=== PATIENT | female | born 1990 | race Caucasian/White ===

== ENCOUNTER → 2019-04-09 10:21 | Outpatient (CLI) | payer OTHER, MEDICAID, SELFPAY ==
[2019-04-09 10:52] LABS: Hematocrit 38.5 % (36-46); Hemoglobin 12.9 g/dL (12.0-16.0); Mean Corpuscular HGB Conc 33.5 % (30-36); Mean Corpuscular Hemoglobin 30.7 PG (26-34); Mean Corpuscular Volume 91.6 fL (80-100); Platelet Count 221 X10^3/uL (150-400); Red Cell Distribution Width 13.4 % (11.6-14.8); White Blood Cell Count 5.2 X10^3/uL (4.5-11.0)
[2019-04-09 11:31] LABS: Alanine Aminotransferase 17 IU/L (9-52); Albumin 4.3 g/dL (3.5-5.0); Albumin Globulin Ratio 1.6 (1.0-2.8); Alkaline Phosphatase 45 U/L (38-126); Aspartate Aminotransferase 23 IU/L (14-36); BUN Creatinine Ratio 18.8 (6-22); Bilirubin Total 0.4 mg/dL (0.2-1.3); Blood Urea Nitrogen 15 mg/dL (7-17); Calcium 8.8 mg/dL (8.4-10.2); Carbon Dioxide 25 mmol/L (22-32); Chloride 105 mmol/L (98-107); Cholesterol 162 mg/dL (140-199); Estimated Glomerular Filt Rate > 60.0 mL/min (>60); Globulin 2.7 g/dL (1.7-4.1); Glucose 87 mg/dL (70-100); HDL Cholesterol 84 mg/dL (40-60); HEMOLYSIS < 15 (0-50); LDL Cholesterol Calculated 63 mg/dL (<100); Potassium 4.6 mmol/L (3.4-5.1); Sodium 139 mmol/L (137-145); Triglycerides 77 mg/dL (35-150)
[2019-04-09 12:13] LABS: TSH w/ Reflex to FT4 4.81 uIU/mL (0.47-4.68)
[2019-04-09 12:17] LABS: Vitamin B12 546 pg/mL (239-931)
[2019-04-09 12:48] LABS: Free T4, Direct Thyroxine 0.66 ng/dL (0.78-2.19)
== END ==
PROVIDERS: Visit Provider Nurse Practitioner Family
DX: R53.83 Other fatigue (principal); R63.5 Abnormal weight gain; Z00.00 Encounter for general adult medical examination without abnormal findings
CPT/HCPCS: 36415; 80053; 80061; 82607; 84439; 84443; 85027

== ENCOUNTER → 2019-06-06 10:19 | Outpatient (CLI) | payer OTHER, MEDICAID, SELFPAY ==
[2019-06-06 13:51] LABS: Thyroid Stimulating Hormone 3.16 uIU/mL (0.47-4.68)
== END ==
PROVIDERS: Visit Provider Nurse Practitioner Family
DX: E03.9 Hypothyroidism, unspecified (principal)
CPT/HCPCS: 36415; 84443

== ENCOUNTER → 2019-09-16 14:18 | Outpatient (CLI) | payer OTHER, MEDICAID, SELFPAY ==
[2019-09-16 14:58] LABS: Appearance Urine UA CLEAR; Bilirubin Urine UA NEGATIVE (NEGATIVE); Color Urine UA YELLOW; Glucose Urine UA NEGATIVE (Negative); Ketones Urine UA NEGATIVE (NEGATIVE); Leukocyte Esterase Urine UA TRACE (NEGATIVE); Nitrite Urine UA NEGATIVE (Negative); Occult Blood Urine UA 2+ (Negative); Protein Urine UA NEGATIVE (Negative); Specific Gravity Urine UA <=1.005 (1.000-1.035); Urobilinogen Urine UA 0.2 E.U./dL (0.2)
[2019-09-16 15:18] LABS: Bacteria Urine Occasional (0-1); RBC Urine 1-5/HPF (0-5/HPF); Squamous Epithelial Cell Urine 1-5 /HPF (0-5/HPF); WBC Urine 1-5/HPF (0-5/HPF); pH Urine UA 6.5 (4.5-8.0)
[2019-09-16 15:24] LABS: Hematocrit 37.1 % (36-46); Hemoglobin 12.6 g/dL (12.0-16.0); Mean Corpuscular HGB Conc 34.1 % (30-36); Mean Corpuscular Hemoglobin 30.9 PG (26-34); Mean Corpuscular Volume 90.5 fL (80-100); Platelet Count 238 X10^3/uL (150-400); White Blood Cell Count 5.8 X10^3/uL (4.5-11.0)
[2019-09-16 16:08] LABS: T4 Total Thyroxine 6.53 ug/dL (5.5-11.0)
[2019-09-16 16:22] LABS: Thyroid Stimulating Hormone 3.35 uIU/mL (0.47-4.68)
[2019-09-16 17:14] LABS: Hepatitis B Surface Antigen NEGATIVE s/c (NEGATIVE); Rubella Antibody IgG 17.1 IU/mL (>15)
[2019-09-16 17:30] LABS: HIV 1 & 2 Ab/Ag 4th Gen Combo NEGATIVE (NEGATIVE); Hep C Virus Ab w/Reflex Quant NEGATIVE s/c (NEGATIVE)
[2019-09-19 21:16] LABS: RPR Screen Nonreactive (Nonreactive)
== END ==
PROVIDERS: Visit Provider Nurse Practitioner Obstetrics & Gynecology
DX: Z34.81 Encounter for supervision of other normal pregnancy, first trimester (principal)
CPT/HCPCS: 36415; 81001; 84436; 84443; 85027; 86592; 86762; 86803; 86850; 86900; 86901; 87077; 87086; 87340; 87389

== ENCOUNTER → 2019-11-04 09:58 | Outpatient (CLI) | payer OTHER, MEDICAID, SELFPAY ==
--- NOTE | 2019-11-04 09:59 | DI.RAD.S_ITS ---
PROCEDURE: XR TMJ LT INDICATIONS: TMJ pain TECHNIQUE: 6 view(s) of the mandibles bilaterally with open and closed mouth imaging on lateral views acquired. COMPARISON: None. FINDINGS: Bones: No fractures or dislocations. No suspicious bony lesions. Quality of visualization on the lateral view is quite limited due to prominence of the extensive the mastoid air cells superimposed. Soft tissues: No suspicious soft tissue calcifications. IMPRESSION: The quality of visualization is very limited, in this patient. The mastoid air cells are unusually prominent in overlap the area of the mandibular condyles and condylar fossa. MR scanning would provide more accurate assessment and should be obtained if clinically indicated. Dictated by: Alex Hernadez M.D. on 11/04/2019 at 11:11 Approved by: Alex Hernadez M.D. on 11/04/2019 at 11:14
== END ==
PROVIDERS: PCP Nurse Practitioner Family; Referring Provider Nurse Practitioner Family; Visit Provider Nurse Practitioner Family
DX: M26.629 Arthralgia of temporomandibular joint, unspecified side (principal)
CPT/HCPCS: 70330

== ENCOUNTER → 2020-03-12 15:47 | Outpatient (CLI) | payer OTHER, MEDICAID, SELFPAY ==
[2020-03-15 04:08] LABS: COVID19 Sendout Not Detected (Not Detected)
== END ==
PROVIDERS: PCP Nurse Practitioner Family; Visit Provider Physician Assistant
DX: R06.02 Shortness of breath (principal)
CPT/HCPCS: 87635

== ENCOUNTER → 2020-03-17 14:42 | Outpatient (CLI) | payer OTHER, MEDICAID, SELFPAY ==
[2020-03-17 15:27] LABS: Add Manual Diff / Slide Review NO; Basophils Absolute Auto 100 /uL (0-100); Basophils Percent Auto 1.1 % (0-2); Eosinophils Absolute Auto 100 /uL (0-450); Eosinophils Percent Auto 1.5 % (2-4); Hematocrit 37.5 % (36-46); Hemoglobin 13.2 g/dL (12.0-16.0); Lymphocytes Absolute Auto 2000 /uL (1100-4500); Lymphocytes Percent Auto 30.9 % (25-40); Mean Corpuscular HGB Conc 35.3 % (30-36); Mean Corpuscular Hemoglobin 32.7 PG (26-34); Mean Corpuscular Volume 92.8 fL (80-100); Monocytes Absolute Auto 600 /uL (0-900); Monocytes Percent Auto 9.4 % (3-14); Neutrophils Absolute Auto 3600 /uL (1500-7000); Neutrophils Percent Auto 57.1 % (50-75); Platelet Count 221 X10^3/uL (150-400); Red Blood Cell Count 4.04 X10^6/uL (4.0-5.2); Red Cell Distribution Width 13.7 % (11.6-14.8); White Blood Cell Count 6.3 X10^3/uL (4.5-11.0)
[2020-03-17 15:31] LABS: HEMOLYSIS < 15 (0-50); Iron 105 ug/dL (37-170)
[2020-03-17 15:35] LABS: Alanine Aminotransferase 17 IU/L (<35); Albumin 4.3 g/dL (3.5-5.0); Albumin Globulin Ratio 1.7 (1.0-2.8); Alkaline Phosphatase 55 U/L (38-126); Aspartate Aminotransferase 26 IU/L (14-36); BUN Creatinine Ratio 16.7 (6-22); Bilirubin Total 0.3 mg/dL (0.2-1.3); Blood Urea Nitrogen 13 mg/dL (7-17); Calcium 9.2 mg/dL (8.4-10.2); Carbon Dioxide 25 mmol/L (22-32); Chloride 104 mmol/L (98-107); Estimated Glomerular Filt Rate > 60.0 mL/min (>60); Globulin 2.6 g/dL (1.7-4.1); Glucose 92 mg/dL (70-100); HEMOLYSIS < 15 (0-50); Potassium 3.8 mmol/L (3.4-5.1); Sodium 136 mmol/L (137-145); Total Protein 6.9 g/dL (6.3-8.2)
[2020-03-17 15:43] LABS: Percent Iron Saturation 30 % (15-50); Total Iron Binding Capacity 351 ug/dL (265-497); Transferrin 289 mg/dL (206-381)
[2020-03-17 16:02] LABS: TSH w/ Reflex to FT4 3.94 uIU/mL (0.47-4.68)
[2020-03-17 16:07] LABS: Ferritin 37 ng/mL (6-137)
[2020-03-17 16:21] LABS: Vitamin B12 Reflex MMA if <400 541 pg/mL (239-931)
== END ==
PROVIDERS: PCP Nurse Practitioner Family; Referring Provider Nurse Practitioner Family; Visit Provider Nurse Practitioner Family
DX: R42 Dizziness and giddiness (principal)
CPT/HCPCS: 36415; 80053; 82607; 82728; 83540; 83550; 83735; 84443; 85025

== ENCOUNTER → 2020-03-23 06:55 | Outpatient (CLI) | payer OTHER, MEDICAID, SELFPAY ==
--- NOTE | 2020-03-23 07:10 | DI.ECHO.S_ITS ---
Echocardiogram Report + + :Name: KALEB HARTMANN Study Date: 03/23/2020 Height: 63 in : :[facility] Weight: 132 lb : : Gender: Female BSA: 1.6 m2 : :: 1990 Age: 30 yrs BP: 115/80 mmHg: :Reason For Study: CHEST PAIN : : Performed By: Aly Trent : :Referring: ELVIN WHITE : + + Interpretation Summary The ejection fraction is estimated to be 60-65%. There is no significant valvular heart disease. Procedure: A two-dimensional transthoracic echocardiogram with color flow and Doppler was performed. The study quality was technically good. There is no prior echocardiogram noted for this patient. The patient was in normal sinus rhythm during the exam. Left Ventricle: The left ventricle is normal in size. There is normal left ventricular wall thickness. The ejection fraction is estimated to be 60-65%. There are no focal wall motion abnormalities. Right Ventricle: The right ventricle is normal in size and function. Atria: Both atria are normal in size. The interatrial septum is intact with no evidence for an atrial septal defect. Mitral Valve: The mitral valve is normal in structure and function. There is trace mitral regurgitation. Aortic Valve: The aortic valve is trileaflet. The aortic valve opens well. No aortic regurgitation is present. Tricuspid Valve: The tricuspid valve is normal in structure and function. There is trace tricuspid regurgitation. The right ventricular systolic pressure is estimated to be at least 22 mmHg based on an estimated right atrial pressure of 8 mm Hg. Pulmonic Valve: The pulmonic valve is normal in structure and function. There is trace pulmonic regurgitation. Great Vessels: The aortic root is normal size. The dimensions of the ascending aorta are normal. The pulmonary artery is normal size. The IVC is dilated (diameter is greater than 2.1 cm) yet it collapses greater than 50% with a sniff. This suggests a right atrial pressure of 8 mm Hg. Pericardium/ Pleura There is no pericardial effusion. There is no pleural effusion. MMode/2D Measurements & Calculations LVIDd: 4.0 cm LVOT diam: 2.0 cm LVIDs: 2.3 cm Ao root diam: 2.6 cm FS: 42.2 % asc Aorta Diam: 2.6 cm EPSS: 0.24 cm Ao Arch Diam (Prox Trans): 2.1 cm IVSd: 0.70 cm LVPWd: 0.83 cm LV shore. diameter/BSA (cm/m^2): 2.5 LV sys. diameter/BSA (cm/m^2): 1.4 LA dimension: 2.6 cm RA long axis: 4.4 cm LA A2 area: 15.2 cm2 RA area: 12.0 cm2 LA A4 area: 14.1 cm2 RA vol: 27.7 ml LA length (vol): 4.7 cm RA : 17.1 ml/m2 LA vol: 38.9 ml IVC diam: 2.2 cm LA vol index: 24.0 ml/m2 TAPSE: 2.1 cm Doppler Measurements & Calculations Ao V2 max: 123.8 cm/sec LVOT Max Calin: 96.0 cm/sec Ao V2 mean: 89.7 cm/sec LV V1 max P.7 mmHg Ao max P.1 mmHg LV V1 VTI: 20.6 cm Ao mean P.5 mmHg ASIM(I,D): 2.3 cm2 Ao V2 VTI: 27.3 cm ASIM(V,D): 2.3 cm2 sev ratio: 0.75 ASIM indexed to BSA (cm^2/m^2): 1.4 MV E max calin: 89.1 cm/sec TR max calin: 185.4 cm/sec MV A max calin: 35.4 cm/sec TR max P.7 mmHg MV E/A: 2.5 PA V2 max: 65.8 cm/sec Med Peak E' Calin: 10.6 cm/sec PA V2 mean: 48.0 cm/sec E/E' med: 8.4 PA mean P.0 mmHg Lat Peak E' Calin: 10.7 cm/sec PA pr(Accel): 3.6 mmHg E/E' lat: 8.3 E/e' average: 8.3 MV dec time: 0.21 sec SV(LVOT): 62.3 ml Reading Physician:03:49 PM
== END ==
PROVIDERS: PCP Nurse Practitioner Family; Referring Provider Nurse Practitioner Family; Visit Provider Nurse Practitioner Family
DX: R07.9 Chest pain, unspecified (principal); R00.2 Palpitations; R42 Dizziness and giddiness; R06.02 Shortness of breath
CPT/HCPCS: 93306

== ENCOUNTER → 2020-07-22 10:43 | Outpatient (CLI) | payer OTHER, MEDICAID, SELFPAY ==
--- NOTE | 2020-07-22 | DI.US.S_ITS ---
PROCEDURE: US OB >= 14 WEEKS FETUS INDICATIONS: ANATOMY SCAN OUTSIDE/PRIOR DATING DATA: Last menstrual period (LMP): 03/01/2020. LMP-based estimated date of delivery (DAMON): 12/06/2020 . First dating scan (date and location): 07/22/2020 . Estimated date of delivery (DAMON) from first dating scan: 12/05/2020 . TECHNIQUE: Real-time scanning was performed of the fetus, with image documentation and biometric measurements. Endovaginal scanning: No COMPARISON: None. FINDINGS: General: A single living intrauterine gestation is present. Presentation: Vertex. Placenta: Placental position is anterior , without previa. Amniotic fluid index: 11.5 cm, normal range is 5-24 cm. heart rate: 157 beats per minute. Maternal cervical canal: 3.6 cm long. Normal lower limit is 2.5 cm. biometrics: Biparietal diameter: 20 weeks 1 day Head circumference: 20 weeks 1 day Abdominal circumference: 20 weeks 3 days Femur length: 20 weeks 4 days Estimated gestational age from initial scan: not applicable. Composite gestational age from present scan: 20 weeks 4 days Estimated weight and percentile: 356 g; 47 percentile Measurement variability for biometric dating: +/- 7 days from 14 weeks to 15 weeks 6 days gestation, +/- 10 days from 16 weeks to 21 weeks 6 days gestation, +/- 2 weeks from 22 weeks to 27 weeks 6 days gestation, +/- 3 weeks for 28 weeks gestation or later. weight reference: 4500 g or EFW >90/95% is considered macrosomia or large for gestational age. EFW <10% is small for gestational age. EFW 5% or less is considered intra-uterine growth restriction. Anatomic survey: Neuro: Ventricles are non-dilated at less than 10 mm. Cisterna magna is normal at 3-11 mm. Cerebellum is normal in size and morphology. Nuchal skin fold: Normal at less than 6 mm between 14-21 weeks gestational age. Face: Nose and lips, facial profile are normal. Spine: No evidence for spina bifida. Heart: 4-chambered heart is present, with normal ventricular outflow tracts. Diaphragm: Diaphragm is intact. Stomach: Left-sided stomach is present. Kidneys: No hydronephrosis. Normal is less than 5 mm in 2nd trimester, less than 7 mm in 3rd trimester. Cord: 3-vessel cord has orthotopic insertion. Bladder: Normal in size. Extremities: All 4 extremities identified. IMPRESSION: 1. Single living IUP with composite gestational age of 20 weeks 4 days corresponding to ultrasound DAMON of 12/05/2020. 2. Normal anatomic survey. Dictated by: Javy Ruiz LOCATED [facility]IN [facility] Interpreted: Isaias Romero MD on 07/22/2020 at 13:36 Approved by: Isaias Romero M.D. on 07/22/2020 at 16:38
== END ==
PROVIDERS: PCP Nurse Practitioner Family; Referring Provider Nurse Practitioner Family; Visit Provider Nurse Practitioner Obstetrics & Gynecology
DX: Z36.89 Encounter for other specified antenatal screening (principal); Z3A.20 20 weeks gestation of pregnancy
CPT/HCPCS: 76811

== ENCOUNTER → 2020-08-29 10:50 | Outpatient (ROUT) | payer OTHER, MEDICAID, SELFPAY ==
[2020-08-29 10:55] LABS: Hematocrit 31.2 % (36-46); Hemoglobin 10.6 g/dL (12.0-16.0); Mean Corpuscular Volume 91.2 fL (80-100); Platelet Count 247 X10^3/uL (150-400); Red Blood Cell Count 3.42 X10^6/uL (4.0-5.2); Red Cell Distribution Width 14.1 % (11.6-14.8); White Blood Cell Count 6.1 X10^3/uL (4.5-11.0)
[2020-08-29 11:43] LABS: GTT (PREG) 1 Hour PP 50gm Dose 158 mg/dL (76-139)
[2020-08-29 12:13] LABS: Thyroid Stimulating Hormone 2.26 uIU/mL (0.47-4.68)
== END ==
PROVIDERS: PCP Nurse Practitioner Family; Visit Provider Nurse Practitioner Obstetrics & Gynecology
DX: Z34.90 Encounter for supervision of normal pregnancy, unspecified, unspecified trimester (principal); Z13.1 Encounter for screening for diabetes mellitus; E03.9 Hypothyroidism, unspecified; Z3A.26 26 weeks gestation of pregnancy
CPT/HCPCS: 82950; 84436; 84443; 85027; 86850

== ENCOUNTER → 2020-09-02 08:09 | Outpatient (CLI) | payer OTHER, MEDICAID, SELFPAY ==
[2020-09-02 09:42] LABS: Glucose Fasting 77 mg/dL (70-100)
[2020-09-02 10:36] LABS: Glucose 1 Hour 118 mg/dL (70-170)
[2020-09-02 11:31] LABS: Glucose Tol Interpretation INTERPRETATION
[2020-09-02 12:45] LABS: Glucose 2 Hour 110 mg/dL (70-140)
[2020-09-02 12:49] LABS: Glucose 3 Hour 124 mg/dL (70-115)
== END ==
PROVIDERS: PCP Nurse Practitioner Family; Referring Provider Nurse Practitioner Obstetrics & Gynecology; Visit Provider Nurse Practitioner Obstetrics & Gynecology
DX: Z34.90 Encounter for supervision of normal pregnancy, unspecified, unspecified trimester (principal); Z13.1 Encounter for screening for diabetes mellitus; Z3A.26 26 weeks gestation of pregnancy
CPT/HCPCS: 36415; 82951; 82952

== ENCOUNTER 2020-10-06 19:37 | Outpatient (CLI) | payer OTHER, MEDICAID, SELFPAY ==
--- NOTE | 2020-10-06 19:47 | PM.OBTRLD ---
Visit Information Visit Information Date of evaluation: 10/06/20 Primary OB Provider: Tali Pearce On-call OB Provider: Haley Espitia Reason for Evaluation: Yes other Comments/Additional reasons for admission: 30YO @ [id number] by LMP and early US here for evaluation of upper abdominal pain that started around 5pm tonight and has progressively increased in intensity, now constant at a 5/10. Normal day with normal foods, no fatty food intake recently. BM today was normal for her. +Nausea, but no vomiting, worsens as pain worsens. Pain is primarily epigastric and RUQ, but very worried because her whole belly was tightening. Took a bath and rested with worsening episodes of pain to 9/10. Took TUMs at home with no relief. No fever or chills. Routine care w/ CNM complicated by hypothyroid (stable on Levothyroxine) and anemia (on FeSO4 supplementation). [facility] Medical History Anemia (~2016) Chicken pox (~1992) Headache (~2018) Intermittent chest pain Intermittent palpitations Iron deficiency Lightheaded Painful menstrual periods (~2017) Patient request for diagnostic testing Temporomandibular joint (TMJ) pain Surgical History Anesthesia [place] teeth removed (~2007) Family History Grandmother Breast cancer Social History Smoking Status: Never smoker second hand exposure: No alcohol intake: current substance use type: does not use Review of Systems Review of Systems ROS: Yes All systems reviewed with the patient and are negative except as otherwise documented Exam Vital Signs (past 8 hours): BP 105/73, [id number], T97.3F Temporal, RR17/min Chest Chest: normal inspection of the chest Resp Effort & Inspection: normal respiratory effort Auscultation: clear to auscultation bilaterally Cardio Rate: regular rate Rhythm: regular rhythm Heart Sounds: S1 normal and S2 normal GI Inspection: normal to inspection Palpation: soft Auscultation: normal bowel sounds Uterus Location (Fundal Height): 31 Presentation: vertex Objective Labs Result Diagrams: 10/06/20 20:08 10/06/20 20:08 Evaluation Evaluation Baseline heart rate: 135 Variability: Moderate (11-25) monitor accelerations: Present monitor decelerations: Absent Uterine Contraction Intensity: Mild Comments: single mild ctx during evaluation Diagnosis, Plan/Disposition Final Diagnosis (1) Anemia affecting : Status: Acute Problem details: Continue (2) Hypothyroid in , antepartum: Status: Acute Problem details: Continue Levothyroxine (3) Dyspepsia: Status: Acute Problem details: Dyspepsia resolved and labs are relatively normal. Consult to for mild hyponatremia, who agreed w/ evaluation and plan to discharge to home. Counseled pt on mild hyponatremia and likely billiary tract disorder, now resolved. Recommend normal diet and hydration and call if sx return.
[2020-10-06 20:14] LABS: Add Manual Diff / Slide Review NO; Basophils Absolute Auto 0 /uL (0-100); Basophils Percent Auto 0.6 % (0-2); Eosinophils Absolute Auto 100 /uL (0-450); Hematocrit 29.4 % (36-46); Hemoglobin 10.3 g/dL (12.0-16.0); Lymphocytes Absolute Auto 1700 /uL (1100-4500); Lymphocytes Percent Auto 22.4 % (25-40); Mean Corpuscular HGB Conc 34.9 % (30-36); Mean Corpuscular Hemoglobin 31.1 PG (26-34); Mean Corpuscular Volume 89.2 fL (80-100); Monocytes Absolute Auto 800 /uL (0-900); Monocytes Percent Auto 9.8 % (3-14); Neutrophils Absolute Auto 5100 /uL (1500-7000); Neutrophils Percent Auto 66.2 % (50-75); Platelet Count 221 X10^3/uL (150-400); Red Cell Distribution Width 13.5 % (11.6-14.8); White Blood Cell Count 7.7 X10^3/uL (4.5-11.0)
[2020-10-06] MEDS: FAMOTIDINE 20 MG TABLET 40 MG PO (20:23)
[2020-10-06 20:28] LABS: Alanine Aminotransferase 15 IU/L (<35); Albumin 3.3 g/dL (3.5-5.0); Albumin Globulin Ratio 1.2 (1.0-2.8); Alkaline Phosphatase 78 U/L (38-126); Amylase 77 U/L (30-110); Aspartate Aminotransferase 21 IU/L (14-36); Bilirubin Total 0.1 mg/dL (0.2-1.3); Blood Urea Nitrogen 7 mg/dL (7-17); Calcium 8.8 mg/dL (8.4-10.2); Carbon Dioxide 23 mmol/L (22-32); Chloride 106 mmol/L (98-107); Estimated Glomerular Filt Rate > 60.0 mL/min (>60); Globulin 2.7 g/dL (1.7-4.1); Glucose 85 mg/dL (70-100); HEMOLYSIS < 15 (0-50); Lipase 96 U/L (23-300); Potassium 3.4 mmol/L (3.4-5.1); Sodium 131 mmol/L (137-145)
== END 2020-10-06 20:45 | disposition home or self-care (01) ==
LOC: LABOR 10-07 06:55 → OB 10-07 11:07
PROVIDERS: PCP Nurse Practitioner Family; Referring Provider Nurse Practitioner Obstetrics & Gynecology; Visit Provider Nurse Practitioner Obstetrics & Gynecology
DX: O99.013 Anemia complicating pregnancy, third trimester (principal); R10.13 Epigastric pain; O99.283 Endocrine, nutritional and metabolic diseases complicating pregnancy, third trimester; Z3A.31 31 weeks gestation of pregnancy
CPT/HCPCS: 36415; 59025; 80053; 82150; 83690; 85025; G0378; A9270; G0379

== ENCOUNTER → 2020-11-14 14:37 | Outpatient (ROUT) | payer OTHER, MEDICAID, SELFPAY | PROVIDERS: PCP Nurse Practitioner Family; Visit Provider Nurse Practitioner Obstetrics & Gynecology | DX: Z34.90 Encounter for supervision of normal pregnancy, unspecified, unspecified trimester (principal); Z36.85 Encounter for antenatal screening for Streptococcus B; Z3A.36 36 weeks gestation of pregnancy | CPT/HCPCS: 87081; 87147 ==

== ENCOUNTER 2020-11-15 12:45 | Outpatient (RCR) | payer OTHER, MEDICAID, SELFPAY ==
--- NOTE | 2020-11-04 16:00 | PT.OIE ---
Current Diagnoses Postural lordosis, lumbar region (11/04/20) Low back pain (11/04/20) Pain in thoracic spine (11/04/20) Muscle weakness (generalized) (11/04/20) Segmental and somatic dysfunction of sacral region (11/04/20) Abnormal posture (11/04/20) Past Medical History (Last Reviewed 10/06/20 @ 20:13 by Tali Pearce CNM) Anemia (~2016) Chicken pox (~1992) Headache (~2018) Intermittent chest pain Intermittent palpitations Iron deficiency Lightheaded Painful menstrual periods (~2017) Patient request for diagnostic testing Temporomandibular joint (TMJ) pain Past Surgical History (Last Reviewed 10/06/20 @ 20:13 by Tali Pearce CNM) Anesthesia [place] teeth removed (~2007) Visit Care Team Role Provider Type NOE White Primary Care Provider Advanced Tube Rebuilder Specialty: Family Practice Address: [address] [place] [address], [id number] Email: [email or web address] Tali Pearce CNM Attending Provider Advanced Tube Rebuilder Referring Provider Specialty: FERN GATHERER Address: [address] [place] [address], [address] [place] [address], [address] Email: [email or web address] Physical Therapy Initial Evaluation PT-OP-A Visit Information Start: 11/04/20 08:13 Freq: Status: Active Protocol: Document 11/04/20 08:18 LRN (Rec: 11/04/20 09:08 DANIELA [id number]) Out-Patient Physical Therapy Visit Information Visit Information Visit Type Initial Evaluation Visit Start Time 08:18 Visit Stop Time 09:07 Total Visit Minutes 49 Visit Number 1 Evaluation Information Evaluation Date 11/04/20 Precautions Precautions 35 weeks , hypothyroid PT-OP-B Current Condition Start: 11/04/20 08:13 Freq: Status: Active Protocol: Document 11/04/20 08:18 LRN (Rec: 11/04/20 09:08 DANIELA [id number]) Current Condition History of Current Condition Onset Date June or July 2020Aug Current Complaints R Low back pain & L anterolateral trunk, LUQ pain. History of Current Condition Currently 35 weeks along. Due date is December 06. Early 2nd trimester pain started to bother sleeping. Did stretching and yoga. Nothing helped and sometimes got stuck on the floor after doing yoga . Onset possible from injury as a youth when she landed on her R side. 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 Fell on R side 2014, and had a week of pain in the same area. Now , the pain has comeback. Keeps her up at night. When lies on L side she has pain under the ribs on L side. Has R LBP when lying on R side. Prior Treatments and Tests None Future Testing and Treatments Planned None Developmental History Developmental History Has had chest pain early last year in the L lateral ribs, sharp pain with breathing and lying on L side. No known previous upper back injury. Previous pregnancies was active all the way through ( 2008 & 06/2017), 11 and 3 yr old daughters. No complications with previous pregnancies. 2nd child had tearing, 2 stitches. No pain with first 2 pregnancies. Treatment Goals Patient/Caregiver Goals Decrease pain and be able to sleep better at night. Prior Functional Status Baseline Function- ADL's Independent Baseline Function- Mobility Independent Baseline Function- Gait Hiking with dogs on trails. Baseline Function- Recreation/Hobbies Exercised daily in gym. Baseline Function- Other Sleeping: Woke 1x/night. Current Functional Impairments (Reported) Functional Limitations- ADL's Walking. Bending over. Lifting. L trunk pain in L sidelie and temporary pain with breathing. Sharp stabbing, deep pain. R LBP, dull. Functional Limitations- Mobility/Gait Walks [place] [address], having limiting pain afterwards. Functional Limitations- Work/School Laid off. Functional Limitations- Other Difficulty sleeping. Waking 3x/night. Personal Factors Other Personal Factors That May Effect 35 weeks , Hypothyroid Therapy/Recovery , bruises easily. PT-OP-C Subjective Start: 11/04/20 08:13 Freq: Status: Active Protocol: Document 11/04/20 08:18 LRN (Rec: 11/04/20 09:08 LRN [id number]) Patient Questionnaires Oswestry Low Back Index Oswestry Score 17 x 2 OP-PT Pain Assessment Pain Assessment Grid Paper Pain Assessment Grid Completed Yes Location LUQ lateral trunk pain Pain Location Details L anterolateral trunk, LUQ pain Intensity 7 Description Sharp,Stabbing Description- Other Deep pain Frequency Intermittent Pain Aggravating Factors Breathing Other Pain Aggravating Factors Lying on L side Right Lower Back Pain Location Details R SIJ Intensity 7 Scale Used Numeric (0 - 10) Description Dull Frequency Intermittent Radiating Location towards midline of body Pain Aggravating Factors Activity Other Pain Aggravating Factors Walking, PF exers, getting up from floor Other Pain Alleviating Factors Lying down. Stretching, yoga, bridging PT-OP-J Posture/Palpation/Skin Start: 11/04/20 08:13 Freq: Status: Active Protocol: Document 11/04/20 08:18 LRN (Rec: 11/04/20 09:08 LRN [id number]) Posture Evaluation Position Standing Evaluation View All positions L-Spine Posture Increased Lordosis Pelvis Posture Anteriorly Tilted Knee Posture (L) Genu Recurvatum,(R) Genu Recurvatum Comments Posture Comments Protruding abdomen consistent with . Trunk shift left. Anteriorly rotated R innominate. Palpation Assessment Location R innominate Palpation Location R PSIS & ASIS Palpation Details R PSIS is elevated, R ASIS is low (anteriorly rotated innominate) Rib 6-7 intercostal ms Palpation Location Intercostal muscles of Ribs 5 & 6 anteriorly under breasts. Palpation Findings Tenderness Thoracic Spinous Process Palpation Location T5 & T6 with PA pressure Palpation Findings Tenderness R QL/Sacral border Palpation Location R QL/R SIJ/R lateral lower border of Sacrum Palpation Findings Tenderness Palpation Details Posterior R SIJ in standing. Pain radiates up back sometimes PT-OP-K Range of Motion Start: 11/04/20 08:13 Freq: Status: Active Protocol: Document 11/04/20 08:18 LRN (Rec: 11/04/20 09:08 LRN [id number]) Lumbar Spine Range of Motion Lumbar Spine Active Degrees Testing Position Standing Flexion 15 Extension 0 ROM Limitations Pain Comments Ext 0/5 Flex 85/50 (back held in neutral = hip flexion) Lumbar flex 15/10 before onset of pain. R PSIS is high and + November Test (possible mobility restriction) R ASIS is low\ Hip Goniometric Range of Motion Hip Right Passive Comments Sitting active IR is 45 degs Left Passive Comments Sitting active IR is 32 degs PT-OP-M Strength Start: 11/04/20 08:13 Freq: Status: Active Protocol: Document 11/04/20 08:18 LRN (Rec: 11/04/20 09:08 LRN [id number]) Trunk Strength Trunk Manual Muscle Testing Testing Position Sitting Core Stabilization Pt able to perform a TA contraction. Hip Strength Hip Manual Muscle Testing Right External Rotation 5 Normal Internal Rotation 4+ Good+ Left External Rotation 5 Normal Internal Rotation 5 Normal PT-OP-Q Treatments Start: 11/04/20 08:13 Freq: Status: Active Protocol: Document 11/04/20 08:18 LRN (Rec: 11/04/20 09:08 LRN [id number]) Therapeutic Exercises Sitting Exercises TA tightening Sitting Exercise Name TA tightening. Reps/Minutes 2' Therapeutic Activity Therapeutic Activity Side to side rolling Name Side to side rolling w/ abdominal bracing Reps/Minutes 3' Sit<->Sidelie Name Transfer training sit <-> Sidelie w/abdominal bracing Reps/Minutes 3' Self-Care/Home Management Treatment Education Patient Education Body Mechanics Other Education Educated pt in log roll transfer on/off plinth with I/ S to perform TA with transfers PT-OP-T Assessment and Plan Start: 11/04/20 08:13 Freq: Status: Active Protocol: Document 11/04/20 08:18 LRN (Rec: 11/04/20 09:08 LRN [id number]) Physical Therapy Assessment Rehab Potential Rehabilitation Potential Good Evaluation Complexity Number of Personal Factors/Comorbidities 1-2 Number of Body Systems Impaired 3 Clinical Presentation at Evaluation Evolving Impairments Impairments Activity Tolerance,Pain, Posture Other Impairments 35 weeks , 3rd . Goals Four Impairment Lacks appropriate self care HEP. Lead Nuclear Medicine Technologist Goal (LTG) Pt will be independent with a self care HEP. LTG Duration 12/06/20 Three Impairment R SIJ pain limiting walking and lifting Short Term Goal (STG) Pt will be educated and demonstrate knowledge of improve standing posturing and proper lifting techniques with a reduction of pain with walking short distances and with lifting. STG Duration 11/18/20 Detention Goal (LTG) Decrease R LBP with patient able to tolerate walking for exercise during her . LTG Duration 12/06/20 Two Impairment Lack of sleep from disruption caused by pain (wakes 3x/night ). Short Term Goal (STG) Pt educated in sidelie positioning with supports to improve comfort of sleeping. STG Duration 11/11/20 Detention Goal (LTG) Improve comfort of sleep positioning to decrease sleep disruption associated to trunk and LBP to less than 3x/night due to back or LUQ pain. LTG Duration 12/06/20 One Impairment RUQ pain under rib limiting mobility Short Term Goal (STG) Pt will be educated in proper bending mechanics for picking up objects off floor. STG Duration 11/11/20 Detention Goal (LTG) Decrease pain with pt able to bend over with minimal discomfort. LTG Duration 12/06/20 Assessment Summary Assessment Pt is a 30 yo female who is 35 weeks with her 3rd child and is experiencing R SIJ and L abdominal upper quadrant pain that appears to be a mechanical dysfunction associated to ribs 5 & 6 and discomfort with PA glides of T5, T6 spinous processes, and R innominate appears anteriorly rotated in standing (although leg lengths are even in supine). Her L abdominal upper quadrant pain is at the level of ribs 5 & 6 and tenderness is present in the intercostal space. As expected she has muscle guarding of her R low back, superior to iliac crest and at the SI joint. The pt will benefit from physical therapy for education in proper transfer techniques, core/ pelvic stabilization and low back stretches. The patient would benefit from post-noe physical therapy for core/ pelvic floor stabilization and to address her signs of diastasis rectus. As expected , as her progresses it will become more difficult to stabilize her core; therefore the pt will be issued a HEP for her to continue with stabilization exercises as she is able to tolerate. Physical Therapy Plan Frequency and Duration Frequency of Treatment 2x/Week Plan of Care Start Date 11/04/20 Plan of Care End Date 12/06/20 Therapeutic Interventions Therapeutic Interventions Home Exercise Program,Manual Therapy,Neuromuscular Re- education,Patient/Caregiver Education,Self-Care/Home Management,Soft Tissue Mobilization,Taping, Therapeutic Activities, Therapeutic Exercises Modalities Cold Pack/Ice Massage Next Visit Focus/Plan Next Note Type Treatment Note Next Visit Plan Review proper transfer sit<> sidelie, assess for benefit of SI belt, Body mechanics training (lifting, picking up objects) and positioning education (sidelie for nighttime comfort); TA/PF strengthening, hip (ER's) strengthening, LB & PF stretching; manual therapy for R innominate anterior rot correction if needed and STM; Modality of cryotherapy to end .
--- NOTE | 2020-11-04 16:00 | PT.OPPOC ---
Physical, Occupational & Speech Therapy At [facility] Current Diagnoses Postural lordosis, lumbar region (11/04/20) Low back pain (11/04/20) Pain in thoracic spine (11/04/20) Muscle weakness (generalized) (11/04/20) Segmental and somatic dysfunction of sacral region (11/04/20) Abnormal posture (11/04/20) Visit Care Team Role Provider Type NOE White Primary Care Provider Advanced Shaft Mechanic Specialty: Family Practice Address: [address] [place] [address] [address], [address] Email: [email or web address] Tali Pearce CNM Attending Provider Advanced Shaft Mechanic Referring Provider Specialty: CRIB TENDER Address: [address] [place] [address], [address], [address] Email: [email or web address] Plan Of Care PT-OP-T Assessment and Plan Start: 11/04/20 08:13 Freq: Status: Active Protocol: Document 11/04/20 08:18 LRN (Rec: 11/04/20 09:08 LRN [id number]) Physical Therapy Assessment Rehab Potential Rehabilitation Potential Good Evaluation Complexity Number of Personal Factors/Comorbidities 1-2 Number of Body Systems Impaired 3 Clinical Presentation at Evaluation Evolving Impairments Impairments Activity Tolerance,Pain, Posture Other Impairments 35 weeks , 3rd . Goals Four Impairment Lacks appropriate self care HEP. Senior Engineering Team Leader Goal (LTG) Pt will be independent with a self care HEP. LTG Duration 12/06/20 Three Impairment R SIJ pain limiting walking and lifting Short Term Goal (STG) Pt will be educated and demonstrate knowledge of improve standing posturing and proper lifting techniques with a reduction of pain with walking short distances and with lifting. STG Duration 11/18/20 Senior Engineering Team Leader Goal (LTG) Decrease R LBP with patient able to tolerate walking for exercise during her . LTG Duration 12/06/20 Two Impairment Lack of sleep from disruption caused by pain (wakes 3x/night ). Short Term Goal (STG) Pt educated in sidelie positioning with supports to improve comfort of sleeping. STG Duration 11/11/20 Senior Engineering Team Leader Goal (LTG) Improve comfort of sleep positioning to decrease sleep disruption associated to trunk and LBP to less than 3x/night due to back or LUQ pain. LTG Duration 12/06/20 One Impairment RUQ pain under rib limiting mobility Short Term Goal (STG) Pt will be educated in proper bending mechanics for picking up objects off floor. STG Duration 11/11/20 Residential Goal (LTG) Decrease pain with pt able to bend over with minimal discomfort. LTG Duration 12/06/20 Assessment Summary Assessment Pt is a 30 yo female who is 35 weeks with her 3rd child and is experiencing R SIJ and L abdominal upper quadrant pain that appears to be a mechanical dysfunction associated to ribs 5 & 6 and discomfort with PA glides of T5, T6 spinous processes, and R innominate appears anteriorly rotated in standing (although leg lengths are even in supine). Her L abdominal upper quadrant pain is at the level of ribs 5 & 6 and tenderness is present in the intercostal space. As expected she has muscle guarding of her R low back, superior to iliac crest and at the SI joint. The pt will benefit from physical therapy for education in proper transfer techniques, core/ pelvic stabilization and low back stretches. The patient would benefit from post-noe physical therapy for core/ pelvic floor stabilization and to address her signs of diastasis rectus. As expected , as her progresses it will become more difficult to stabilize her core; therefore the pt will be issued a HEP for her to continue with stabilization exercises as she is able to tolerate. Physical Therapy Plan Frequency and Duration Frequency of Treatment 2x/Week Plan of Care Start Date 11/04/20 Plan of Care End Date 12/06/20 Therapeutic Interventions Therapeutic Interventions Home Exercise Program,Manual Therapy,Neuromuscular Re- education,Patient/Caregiver Education,Self-Care/Home Management,Soft Tissue Mobilization,Taping, Therapeutic Activities, Therapeutic Exercises Modalities Cold Pack/Ice Massage Next Visit Focus/Plan Next Note Type Treatment Note Next Visit Plan Review proper transfer sit<> sidelie, assess for benefit of SI belt, Body mechanics training (lifting, picking up objects) and positioning education (sidelie for nighttime comfort); TA/PF strengthening, hip (ER's) strengthening, LB & PF stretching; manual therapy for R innominate anterior rot correction if needed and STM; Modality of cryotherapy to end . Plan of Care Dates Plan of Care Start Date 11/04/20 Plan of Care End Date 12/06/20 Electronically Signed by: Lizzie Christopher, LJ 11/07/20 9032 Please Sign and Return: I have reviewed this Plan of Care and certify that the skilled therapy services above are required to meet the patient?s needs. Physician Signature Date Printed Name and Credentials Clinical Instructor Signature Printed Name and Credentials
--- NOTE | 2020-11-08 16:12 | PT.OTN ---
Current Diagnoses Postural lordosis, lumbar region (11/08/20) Low back pain (11/08/20) Pain in thoracic spine (11/08/20) Muscle weakness (generalized) (11/08/20) Segmental and somatic dysfunction of sacral region (11/08/20) Abnormal posture (11/08/20) Physical Therapy Treatment Note PT-OP-A Visit Information Start: 11/04/20 08:13 Freq: Status: Active Protocol: Document 11/08/20 13:45 LRN (Rec: 11/08/20 14:22 LRN [id number]) Out-Patient Physical Therapy Visit Information Visit Information Visit Type Treatment Note Visit Start Time 13:45 Visit Stop Time 14:21 Total Visit Minutes 36 Visit Number 2 Evaluation Information Evaluation Date 11/04/20 Precautions Precautions 35 weeks , hypothyroid PT-OP-B Current Condition Start: 11/04/20 08:13 Freq: Status: Active Protocol: Document 11/04/20 08:18 LRN (Rec: 11/04/20 09:08 LRN [id number]) Current Condition History of Current Condition Onset Date June or July 2020, Early Aug Current Complaints R Low back pain & L anterolateral trunk, LUQ pain. History of Current Condition Currently 35 weeks along. Due date is December 06. Early 2nd trimester pain started to bother sleeping. Did stretching and yoga. Nothing helped and sometimes got stuck on the floor after doing yoga . Onset possible from injury as a youth when she landed on her R side. 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 Fell on R side 2014, and had a week of pain in the same area. Now , the pain has comeback. Keeps her up at night. When lies on L side she has pain under the ribs on L side. Has R LBP when lying on R side. Prior Treatments and Tests None Future Testing and Treatments Planned None Developmental History Developmental History Has had chest pain early last year in the L lateral ribs, sharp pain with breathing and lying on L side. No known previous upper back injury. Previous pregnancies was active all the way through ( 2008 & 06/2017), 11 and 3 yr old daughters. No complications with previous pregnancies. 2nd child had tearing, 2 stitches. No pain with first 2 pregnancies. Treatment Goals Patient/Caregiver Goals Decrease pain and be able to sleep better at night. Prior Functional Status Baseline Function- ADL's Independent Baseline Function- Mobility Independent Baseline Function- Gait Hiking with dogs on trails. Baseline Function- Recreation/Hobbies Exercised daily in gym. Baseline Function- Other Sleeping: Woke 1x/night. Current Functional Impairments (Reported) Functional Limitations- ADL's Walking. Bending over. Lifting. L trunk pain in L sidelie and temporary pain with breathing. Sharp stabbing, deep pain. R LBP, dull. Functional Limitations- Mobility/Gait Walks [place] park loop 1/[address] way, having limiting pain afterwards. Functional Limitations- Work/School Laid off. Functional Limitations- Other Difficulty sleeping. Waking 3x/night. Personal Factors Other Personal Factors That May Effect 35 weeks , Hypothyroid Therapy/Recovery , bruises easily. PT-OP-C Subjective Start: 11/04/20 08:13 Freq: Status: Active Protocol: Document 11/08/20 13:45 LRN (Rec: 11/08/20 14:22 LRN [id number]) OP-PT Subjective Patient Comments Patient Comments R hip is getting more sore as the hips are widening for childbirth. R SIJ pain is 3/ 10 on standing. Sometimes uses her SIJ belt but doesn't like to because it makes her want to urinate. PT-OP-J Posture/Palpation/Skin Start: 11/04/20 08:13 Freq: Status: Active Protocol: Document 11/04/20 08:18 LRN (Rec: 11/04/20 09:08 LRN [id number]) Posture Evaluation Position Standing Evaluation View All positions L-Spine Posture Increased Lordosis Pelvis Posture Anteriorly Tilted Knee Posture (L) Genu Recurvatum,(R) Genu Recurvatum Comments Posture Comments Protruding abdomen consistent with . Trunk shift left. Anteriorly rotated R innominate. Palpation Assessment Location R innominate Palpation Location R PSIS & ASIS Palpation Details R PSIS is elevated, R ASIS is low (anteriorly rotated innominate) Rib 6-7 intercostal ms Palpation Location Intercostal muscles of Ribs 5 & 6 anteriorly under breasts. Palpation Findings Tenderness Thoracic Spinous Process Palpation Location T5 & T6 with PA pressure Palpation Findings Tenderness R QL/Sacral border Palpation Location R QL/R SIJ/R lateral lower border of Sacrum Palpation Findings Tenderness Palpation Details Posterior R SIJ in standing. Pain radiates up back sometimes PT-OP-K Range of Motion Start: 11/04/20 08:13 Freq: Status: Active Protocol: Document 11/04/20 08:18 LRN (Rec: 11/04/20 09:08 LRN [id number]) Lumbar Spine Range of Motion Lumbar Spine Active Degrees Testing Position Standing Flexion 15 Extension 0 ROM Limitations Pain Comments Ext 0/5 Flex 85/50 (back held in neutral = hip flexion) Lumbar flex 15/10 before onset of pain. R PSIS is high and + November Test (possible mobility restriction) R ASIS is low\ Hip Goniometric Range of Motion Hip Right Passive Comments Sitting active IR is 45 degs Left Passive Comments Sitting active IR is 32 degs PT-OP-M Strength Start: 11/04/20 08:13 Freq: Status: Active Protocol: Document 11/04/20 08:18 LRN (Rec: 11/04/20 09:08 LRN [id number]) Trunk Strength Trunk Manual Muscle Testing Testing Position Sitting Core Stabilization Pt able to perform a TA contraction. Hip Strength Hip Manual Muscle Testing Right External Rotation 5 Normal Internal Rotation 4+ Good+ Left External Rotation 5 Normal Internal Rotation 5 Normal PT-OP-Q Treatments Start: 11/04/20 08:13 Freq: Status: Active Protocol: Document 11/08/20 13:45 LRN (Rec: 11/08/20 14:22 LRN [id number]) Therapeutic Exercises Sidelying Exercises Clamshell Sidelying Exercise Name Clamshell Side right Reps/Minutes 10x TA Sidelying Exercise Name TA Side bilateral Reps/Minutes 10x Sitting Exercises Valentin BKFO Sitting Exercise Name Valentin BKFO Side bilateral Equipment Used Lev 1 TBand Reps/Minutes 3' Self-Care/Home Management Treatment Education Patient Education Body Mechanics Other Education Transfer training: Sit <> Supine Sit <> Stand. Rolling side <> side. PT-OP-T Assessment and Plan Start: 11/04/20 08:13 Freq: Status: Active Protocol: Document 11/08/20 13:45 LRN (Rec: 11/08/20 14:22 LRN [id number]) Physical Therapy Assessment Goals Four Impairment Lacks appropriate self care HEP. Snf Goal (LTG) Pt will be independent with a self care HEP. LTG Duration 12/06/20 Three Impairment R SIJ pain limiting walking and lifting Short Term Goal (STG) Pt will be educated and demonstrate knowledge of improve standing posturing and proper lifting techniques with a reduction of pain with walking short distances and with lifting. STG Duration 11/18/20 Snf Goal (LTG) Decrease R LBP with patient able to tolerate walking for exercise during her . LTG Duration 12/06/20 Two Impairment Lack of sleep from disruption caused by pain (wakes 3x/night ). Short Term Goal (STG) Pt educated in sidelie positioning with supports to improve comfort of sleeping. STG Duration 11/11/20 Snf Goal (LTG) Improve comfort of sleep positioning to decrease sleep disruption associated to trunk and LBP to less than 3x/night due to back or LUQ pain. LTG Duration 12/06/20 One Impairment RUQ pain under rib limiting mobility Short Term Goal (STG) Pt will be educated in proper bending mechanics for picking up objects off floor. STG Duration 11/11/20 Snf Goal (LTG) Decrease pain with pt able to bend over with minimal discomfort. LTG Duration 12/06/20 Assessment Summary Assessment Less pain noted by pt with transfer when TA/PF tightened. Increased tone of R gluteals and hip ER's. Physical Therapy Plan Frequency and Duration Frequency of Treatment 2x/Week Plan of Care Start Date 11/04/20 Plan of Care End Date 12/06/20 Next Visit Focus/Plan Next Note Type Treatment Note Next Visit Plan Discuss/educate postural changes with . Body mechanics training (lifting, picking up objects) and positioning education (sidelie for nighttime comfort), add LB & PF stretching. Start deep breathing to assess L rib pain and TrP/STM of intercostal ms (T6-T8) treatment as needed. CONTINUE: Add hands/knees TA/ PF strengthening , progress hip (ER's) strengthening (incr reps or resistance); STM, manual therapy for R innominate anterior rot correction if needed; Cryotherapy for pain.
--- NOTE | 2020-11-11 09:31 | PT.OTN ---
Current Diagnoses Postural lordosis, lumbar region (11/11/20) Low back pain (11/11/20) Pain in thoracic spine (11/11/20) Muscle weakness (generalized) (11/11/20) Segmental and somatic dysfunction of sacral region (11/11/20) Abnormal posture (11/11/20) Physical Therapy Treatment Note PT-OP-A Visit Information Start: 11/04/20 08:13 Freq: Status: Active Protocol: Document 11/11/20 08:14 LRN (Rec: 11/11/20 09:04 LRN [id number]) Out-Patient Physical Therapy Visit Information Visit Information Visit Type Treatment Note Visit Start Time 08:14 Visit Stop Time 09:10 Total Visit Minutes 56 Visit Number 3 Evaluation Information Evaluation Date 11/04/20 Precautions Precautions 36 weeks , hypothyroid PT-OP-B Current Condition Start: 11/04/20 08:13 Freq: Status: Active Protocol: Document 11/04/20 08:18 LRN (Rec: 11/04/20 09:08 LRN [id number]) Current Condition History of Current Condition Onset Date June or July 2020, Early Aug Current Complaints R Low back pain & L anterolateral trunk, LUQ pain. History of Current Condition Currently 35 weeks along. Due date is December 06. Early 2nd trimester pain started to bother sleeping. Did stretching and yoga. Nothing helped and sometimes got stuck on the floor after doing yoga . Onset possible from injury as a youth when she landed on her R side. 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 Fell on R side 2014, and had a week of pain in the same area. Now , the pain has comeback. Keeps her up at night. When lies on L side she has pain under the ribs on L side. Has R LBP when lying on R side. Prior Treatments and Tests None Future Testing and Treatments Planned None Developmental History Developmental History Has had chest pain early last year in the L lateral ribs, sharp pain with breathing and lying on L side. No known previous upper back injury. Previous pregnancies was active all the way through ( 2008 & 06/2017), 11 and 3 yr old daughters. No complications with previous pregnancies. 2nd child had tearing, 2 stitches. No pain with first 2 pregnancies. Treatment Goals Patient/Caregiver Goals Decrease pain and be able to sleep better at night. Prior Functional Status Baseline Function- ADL's Independent Baseline Function- Mobility Independent Baseline Function- Gait Hiking with dogs on trails. Baseline Function- Recreation/Hobbies Exercised daily in gym. Baseline Function- Other Sleeping: Woke 1x/night. Current Functional Impairments (Reported) Functional Limitations- ADL's Walking. Bending over. Lifting. L trunk pain in L sidelie and temporary pain with breathing. Sharp stabbing, deep pain. R LBP, dull. Functional Limitations- Mobility/Gait Walks [place] [address] way, having limiting pain afterwards. Functional Limitations- Work/School Laid off. Functional Limitations- Other Difficulty sleeping. Waking 3x/night. Personal Factors Other Personal Factors That May Effect 35 weeks , Hypothyroid Therapy/Recovery , bruises easily. PT-OP-C Subjective Start: 11/04/20 08:13 Freq: Status: Active Protocol: Document 11/11/20 08:14 LRN (Rec: 11/11/20 09:04 LRN [id number]) OP-PT Subjective Patient Comments Patient Comments Was a little better after last treatment. Last night was having a lot of chest pain . Back pain is getting better after doing exercises. PT-OP-J Posture/Palpation/Skin Start: 11/04/20 08:13 Freq: Status: Active Protocol: Document 11/04/20 08:18 LRN (Rec: 11/04/20 09:08 LRN [id number]) Posture Evaluation Position Standing Evaluation View All positions L-Spine Posture Increased Lordosis Pelvis Posture Anteriorly Tilted Knee Posture (L) Genu Recurvatum,(R) Genu Recurvatum Comments Posture Comments Protruding abdomen consistent with . Trunk shift left. Anteriorly rotated R innominate. Palpation Assessment Location R innominate Palpation Location R PSIS & ASIS Palpation Details R PSIS is elevated, R ASIS is low (anteriorly rotated innominate) Rib 6-7 intercostal ms Palpation Location Intercostal muscles of Ribs 5 & 6 anteriorly under breasts. Palpation Findings Tenderness Thoracic Spinous Process Palpation Location T5 & T6 with PA pressure Palpation Findings Tenderness R QL/Sacral border Palpation Location R QL/R SIJ/R lateral lower border of Sacrum Palpation Findings Tenderness Palpation Details Posterior R SIJ in standing. Pain radiates up back sometimes PT-OP-K Range of Motion Start: 11/04/20 08:13 Freq: Status: Active Protocol: Document 11/04/20 08:18 LRN (Rec: 11/04/20 09:08 LRN [id number]) Lumbar Spine Range of Motion Lumbar Spine Active Degrees Testing Position Standing Flexion 15 Extension 0 ROM Limitations Pain Comments Ext 0/5 Flex 85/50 (back held in neutral = hip flexion) Lumbar flex 15/10 before onset of pain. R PSIS is high and + November Test (possible mobility restriction) R ASIS is low\ Hip Goniometric Range of Motion Hip Right Passive Comments Sitting active IR is 45 degs Left Passive Comments Sitting active IR is 32 degs PT-OP-M Strength Start: 11/04/20 08:13 Freq: Status: Active Protocol: Document 11/04/20 08:18 LRN (Rec: 11/04/20 09:08 LRN [id number]) Trunk Strength Trunk Manual Muscle Testing Testing Position Sitting Core Stabilization Pt able to perform a TA contraction. Hip Strength Hip Manual Muscle Testing Right External Rotation 5 Normal Internal Rotation 4+ Good+ Left External Rotation 5 Normal Internal Rotation 5 Normal PT-OP-Q Treatments Start: 11/04/20 08:13 Freq: Status: Active Protocol: Document 11/11/20 08:14 LRN (Rec: 11/11/20 09:04 LRN [id number]) Therapeutic Exercises Supine Exercises Happy Baby Pose Supine Exercise Name Happy Baby Pose stretch Reps/Minutes 2' Sidelying Exercises Clamshell Sidelying Exercise Name Clamshell Side right Equipment Used Pillow to support back in L sidelie Reps/Minutes 10x 2 TA Sidelying Exercise Name TA Side bilateral Equipment Used Pillow to support back in L sidelie Reps/Minutes 10x 2 Comments Partial L sidelie, extra time for positioning Sitting Exercises Valentin BKFO Sitting Exercise Name Valentin BKFO Side bilateral Equipment Used Lev 1 TBand Reps/Minutes 10x 2 TA tightening Sitting Exercise Name TA tightening Reps/Minutes 10x Manual Therapy Treatment Soft Tissue Mobilization L Intercostals Body Location L T5-T6, T6-T7 Mobilization Type Trigger Point Release Intensity/Depth Moderate Body Position Sidelying Comments Mutiple TrP regions start mid trunk moving anteriorly, then mid trunk moving posteriorly to lateral side of Scapula. Self-Care/Home Management Treatment Education Patient Education Body Mechanics Other Education Reviewed Transfer sit<>Supine w/TA tightening. Discussed, educated, and positioned pt in partial sidelying to decrease lateral trunk pain and for hip pain. Activities Self-Care/Home Management Activities Issued & Reviewed: body changes: Muscles That Meet the Challenge PT-OP-R Modalities Start: 11/11/20 09:05 Freq: Status: Active Protocol: Document 11/11/20 08:14 LRN (Rec: 11/11/20 09:07 LRN [id number]) Hot Pack/Cold Pack Treatment Cold Pack Location Low Back Patient Position Prone Treatment Duration (minutes) 10 Comments Prone on Pillow PT-OP-T Assessment and Plan Start: 11/04/20 08:13 Freq: Status: Active Protocol: Document 11/11/20 08:14 LRN (Rec: 11/11/20 09:04 LRN [id number]) Physical Therapy Assessment Goals Four Impairment Lacks appropriate self care HEP. Fdc Goal (LTG) Pt will be independent with a self care HEP. HEP: Clamshell & Sitting BKFO. HANDOUTS: body changes: Muscles That Meet the Challenge LTG Duration 12/06/20 (11/11/20: Progressing) Three Impairment R SIJ pain limiting walking and lifting Short Term Goal (STG) Pt will be educated and demonstrate knowledge of improve standing posturing and proper lifting techniques with a reduction of pain with walking short distances and with lifting. (11/11/20: Handout of posture reviewed) STG Duration 11/18/20 (11/11/20: MET GOAL of pain reduction if on flat surface) Dental Laboratory Assistant Goal (LTG) Decrease R LBP with patient able to tolerate walking for exercise during her . LTG Duration 12/06/20 Two Impairment Lack of sleep from disruption caused by pain (wakes 3x/night ). Short Term Goal (STG) Pt educated in sidelie positioning with supports to improve comfort of sleeping. STG Duration 11/11/20 (11/20/20: MET GOAL) Dental Laboratory Assistant Goal (LTG) Improve comfort of sleep positioning to decrease sleep disruption associated to trunk and LBP to less than 3x/night due to back or LUQ pain. LTG Duration 12/06/20 One Impairment RUQ pain under rib limiting mobility Short Term Goal (STG) Pt will be educated in proper bending mechanics for picking up objects off floor. STG Duration 11/11/20 Dental Laboratory Assistant Goal (LTG) Decrease pain with pt able to bend over with minimal discomfort. LTG Duration 12/06/20 Assessment Summary Assessment Was able to address multiple TrP's in L lateral intercostal muscles, but did not complete to entire area sternum and to thoracic spine due to time contraints. Pt to work in area anteriorly. Pt tight bra may be contributing to her rib pain. Physical Therapy Plan Frequency and Duration Frequency of Treatment 2x/Week Plan of Care Start Date 11/04/20 Plan of Care End Date 12/06/20 Next Visit Focus/Plan Next Note Type Treatment Note Next Visit Plan Recheck walking tolerance. Start body mechanics training (lifting, picking up objects) and review positioning education (partial sidelie for nighttime comfort), issue HEP : TA, hip ER/AB strengthening & add LB & PF stretching. Cont TrP/STM of intercostal ms (T6-T8) treatment for pain (L sidelye). CONTINUE: Add hands/knees TA/PF strengthening , progress hip ( ER's) strengthening (incr reps or resistance); STM, manual therapy for R innominate anterior rot correction if needed; Cryotherapy for pain on pillow.
--- NOTE | 2020-11-15 14:49 | PT.OTN ---
Current Diagnoses Postural lordosis, lumbar region (11/15/20) Low back pain (11/15/20) Pain in thoracic spine (11/15/20) Muscle weakness (generalized) (11/15/20) Segmental and somatic dysfunction of sacral region (11/15/20) Abnormal posture (11/15/20) Physical Therapy Treatment Note PT-OP-A Visit Information Start: 11/04/20 08:13 Freq: Status: Active Protocol: Document 11/15/20 12:48 LRN (Rec: 11/15/20 13:35 LRN [id number]) Out-Patient Physical Therapy Visit Information Visit Information Visit Type Treatment Note Visit Start Time 12:48 Visit Stop Time 13:40 Total Visit Minutes 52 Visit Number 4 Evaluation Information Evaluation Date 11/04/20 Precautions Precautions 36 weeks , hypothyroid PT-OP-B Current Condition Start: 11/04/20 08:13 Freq: Status: Active Protocol: Document 11/04/20 08:18 LRN (Rec: 11/04/20 09:08 LRN [id number]) Current Condition History of Current Condition Onset Date June or July 2020, Early Aug Current Complaints R Low back pain & L anterolateral trunk, LUQ pain. History of Current Condition Currently 35 weeks along. Due date is December 06. Early 2nd trimester pain started to bother sleeping. Did stretching and yoga. Nothing helped and sometimes got stuck on the floor after doing yoga . Onset possible from injury as a youth when she landed on her R side. 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 Fell on R side 2014, and had a week of pain in the same area. Now , the pain has comeback. Keeps her up at night. When lies on L side she has pain under the ribs on L side. Has R LBP when lying on R side. Prior Treatments and Tests None Future Testing and Treatments Planned None Developmental History Developmental History Has had chest pain early last year in the L lateral ribs, sharp pain with breathing and lying on L side. No known previous upper back injury. Previous pregnancies was active all the way through ( 2008 & 06/2017), 11 and 3 yr old daughters. No complications with previous pregnancies. 2nd child had tearing, 2 stitches. No pain with first 2 pregnancies. Treatment Goals Patient/Caregiver Goals Decrease pain and be able to sleep better at night. Prior Functional Status Baseline Function- ADL's Independent Baseline Function- Mobility Independent Baseline Function- Gait Hiking with dogs on trails. Baseline Function- Recreation/Hobbies Exercised daily in gym. Baseline Function- Other Sleeping: Woke 1x/night. Current Functional Impairments (Reported) Functional Limitations- ADL's Walking. Bending over. Lifting. L trunk pain in L sidelie and temporary pain with breathing. Sharp stabbing, deep pain. R LBP, dull. Functional Limitations- Mobility/Gait Walks [place] loop [address], having limiting pain afterwards. Functional Limitations- Work/School Laid off. Functional Limitations- Other Difficulty sleeping. Waking 3x/night. Personal Factors Other Personal Factors That May Effect 35 weeks , Hypothyroid Therapy/Recovery , bruises easily. PT-OP-C Subjective Start: 11/04/20 08:13 Freq: Status: Active Protocol: Document 11/15/20 12:48 LRN (Rec: 11/15/20 13:35 LRN [id number]) OP-PT Subjective Patient Comments Patient Comments Didn't ex yesterday and is now feeling it. Babywise everything is looking good. Past couple days sleeping better due to different positioning and tired from taking care of kids with the snow. Able to do more steps, iused to be 3000 (before BP was 10,000 steps), now able to do 5000 steps. PT-OP-J Posture/Palpation/Skin Start: 11/04/20 08:13 Freq: Status: Active Protocol: Document 11/04/20 08:18 LRN (Rec: 11/04/20 09:08 LRN [id number]) Posture Evaluation Position Standing Evaluation View All positions L-Spine Posture Increased Lordosis Pelvis Posture Anteriorly Tilted Knee Posture (L) Genu Recurvatum,(R) Genu Recurvatum Comments Posture Comments Protruding abdomen consistent with . Trunk shift left. Anteriorly rotated R innominate. Palpation Assessment Location R innominate Palpation Location R PSIS & ASIS Palpation Details R PSIS is elevated, R ASIS is low (anteriorly rotated innominate) Rib 6-7 intercostal ms Palpation Location Intercostal muscles of Ribs 5 & 6 anteriorly under breasts. Palpation Findings Tenderness Thoracic Spinous Process Palpation Location T5 & T6 with PA pressure Palpation Findings Tenderness R QL/Sacral border Palpation Location R QL/R SIJ/R lateral lower border of Sacrum Palpation Findings Tenderness Palpation Details Posterior R SIJ in standing. Pain radiates up back sometimes PT-OP-K Range of Motion Start: 11/04/20 08:13 Freq: Status: Active Protocol: Document 11/04/20 08:18 LRN (Rec: 11/04/20 09:08 LRN [id number]) Lumbar Spine Range of Motion Lumbar Spine Active Degrees Testing Position Standing Flexion 15 Extension 0 ROM Limitations Pain Comments Ext 0/5 Flex 85/50 (back held in neutral = hip flexion) Lumbar flex 15/10 before onset of pain. R PSIS is high and + November Test (possible mobility restriction) R ASIS is low\ Hip Goniometric Range of Motion Hip Right Passive Comments Sitting active IR is 45 degs Left Passive Comments Sitting active IR is 32 degs PT-OP-M Strength Start: 11/04/20 08:13 Freq: Status: Active Protocol: Document 11/04/20 08:18 LRN (Rec: 11/04/20 09:08 LRN [id number]) Trunk Strength Trunk Manual Muscle Testing Testing Position Sitting Core Stabilization Pt able to perform a TA contraction. Hip Strength Hip Manual Muscle Testing Right External Rotation 5 Normal Internal Rotation 4+ Good+ Left External Rotation 5 Normal Internal Rotation 5 Normal PT-OP-Q Treatments Start: 11/04/20 08:13 Freq: Status: Active Protocol: Document 11/15/20 12:48 LRN (Rec: 11/15/20 13:35 LRN [id number]) Therapeutic Exercises Supine Exercises Happy Baby Pose Supine Exercise Name Happy Baby Pose stretch Reps/Minutes 2' Sidelying Exercises Clamshell Sidelying Exercise Name TA/Clamshell (R>L) Side right Equipment Used Pillow to support back in L sidelie Reps/Minutes 10x 3 Sitting Exercises Deep Breathing Sitting Exercise Name Deep Breathing Comments Improved breath. Trunk SB Sitting Exercise Name SB gentle stretch Side bilateral Reps/Minutes 5 hold x 10 Trunk Rot Sitting Exercise Name Elbows bent, trunk rot/ breathing Side bilateral Reps/Minutes 5 holds, 5x each Comments Pt cued to move slow and not to over-rotate. Hands/Knees push Sitting Exercise Name TA/Hands/Knees Push Reps/Minutes 10 hold x 10 Comments Extra time for training. Valentin BKFO Sitting Exercise Name TA/Valentin BKFO Side bilateral Equipment Used Lev 1 TBand Reps/Minutes 10x 3 Manual Therapy Treatment Soft Tissue Mobilization Low Back Body Location Low Back Mobilization Type Rolling,Strumming,Sustained Pressure Intensity/Depth Moderate Self-Care/Home Management Treatment Education Patient Education Body Mechanics Other Education Education in bending/lifting. Activities Self-Care/Home Management Activities Pt advised to limit time on back with Happy Baby pose stretch and minimal hip rocking. Pt advised to limit sitting trunk rotation/SB to gentle and limited motions ( comfortable and painfree). PT-OP-R Modalities Start: 11/11/20 09:05 Freq: Status: Active Protocol: Document 11/15/20 12:48 LRN (Rec: 11/15/20 13:35 LRN [id number]) Hot Pack/Cold Pack Treatment Cold Pack Location Low Back Patient Position Sitting Treatment Duration (minutes) 10 Comments Step stool under feet PT-OP-T Assessment and Plan Start: 11/04/20 08:13 Freq: Status: Active Protocol: Document 11/15/20 12:48 LRN (Rec: 11/15/20 13:35 LRN [id number]) Physical Therapy Assessment Goals Four Impairment Lacks appropriate self care HEP. Phone Representative Goal (LTG) Pt will be independent with a self care HEP. HEP: Clamshell & Sitting BKFO. HANDOUTS: body changes: Muscles That Meet the Challenge LTG Duration 12/06/20 (11/11/20: Progressing) Three Impairment R SIJ pain limiting walking and lifting Short Term Goal (STG) Pt will be educated and demonstrate knowledge of improve standing posturing and proper lifting techniques with a reduction of pain with walking short distances and with lifting. (11/11/20: Handout of posture reviewed) STG Duration 11/18/20 (11/11/20: MET GOAL of pain reduction if on flat surface) Phone Representative Goal (LTG) Decrease R LBP with patient able to tolerate walking for exercise during her . (11/15/20: Walking for exercise with less pain on level - 5000 steps) LTG Duration 12/06/20 Two Impairment Lack of sleep from disruption caused by pain (wakes 3x/night ). Short Term Goal (STG) Pt educated in sidelie positioning with supports to improve comfort of sleeping. STG Duration 11/11/20 (11/20/20: MET GOAL) Phone Representative Goal (LTG) Improve comfort of sleep positioning to decrease sleep disruption associated to trunk and LBP to less than 3x/night due to back or LUQ pain. (11/15/20: Waking 2-3x/night due to bakc pain, LUQ pain is off/on with wearing of looser bra) LTG Duration 12/06/20 (11/15/20: Improved to waking only 2-3x/night) One Impairment RUQ pain under rib limiting mobility Short Term Goal (STG) Pt will be educated in proper bending mechanics for picking up objects off floor. STG Duration 11/11/20 (11/15/20: MET GOAL) [facility] Goal (LTG) Decrease pain with pt able to bend over with minimal discomfort. LTG Duration 12/06/20 Progress Towards Goals Progress Comments 11/15/20: Walking for exercise with less pain on level - 5000 steps Assessment Summary Assessment Pt is ~36 weeks . Pt able to increase exercise repetitions at hips. Pt became SOB while prone on pillow, possibly from previous exercise of Happy Baby pose and hip rocks. Her R SIJ is tender and she has increased ms guarding and tenderness at R sacral border . Physical Therapy Plan Frequency and Duration Frequency of Treatment 2x/Week Plan of Care Start Date 11/04/20 Plan of Care End Date 12/06/20 Next Visit Focus/Plan Next Note Type Treatment Note Next Visit Plan Monitor walking tolerance ( 5000 or greater). Issue HEP: TA, hip ER/AB strengthening & add LB stretching in sitting ( DC in supine) & PF stretching (sitting or squatting). Cont TrP/STM of intercostal ms (T6- T8) treatment for pain (L sidelye). CONTINUE: Add hands/knees TA/PF strengthening , progress hip ( ER's) strengthening (incr reps or resistance); STM, manual therapy for R innominate anterior rot correction if needed; Cryotherapy for pain on pillow.
--- NOTE | 2020-11-22 14:09 | PT-OP ANOTE ---
Pt cancelled due to illness
--- NOTE | 2021-02-09 09:52 | PT-OP ANOTE ---
Message left for pt to return call regarding continuation of therapy, but if pt hasn't called by end of day tomorrow she will be discharged from therapy.
--- NOTE | 2021-03-14 12:58 | PT.OPDS ---
Current Diagnoses Postural lordosis, lumbar region (11/15/20) Low back pain (11/15/20) Pain in thoracic spine (11/15/20) Muscle weakness (generalized) (11/15/20) Segmental and somatic dysfunction of sacral region (11/15/20) Abnormal posture (11/15/20) Visit Care Team Role Provider Type NOE White Primary Care Provider Advanced Automatic Edger Specialty: Family Practice Address: [address] [place] [address] [address], [place], [address] Email: [email or web address] Pearce CNM Attending Provider Advanced Automatic Edger Referring Provider Specialty: [employer] MA[employer]GER Address: [address] [place] [address], [address], [place], [address] Email: [email or web address] Visit Number Visit Number 4 Discharge Summary PT-OP-B Current Condition Start: 11/04/20 08:13 Freq: Status: Active Protocol: Document 11/04/20 08:18 LRN (Rec: 11/04/20 09:08 LRN [id number]) Current Condition History of Current Condition Onset Date June or July 2020, Early Aug Current Complaints R Low back pain & L anterolateral trunk, LUQ pain. History of Current Condition Currently 35 weeks along. Due date is December 06. Early 2nd trimester pain started to bother sleeping. Did stretching and yoga. Nothing helped and sometimes got stuck on the floor after doing yoga . Onset possible from injury as a youth when she landed on her R side. 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 Fell on R side 2014, and had a week of pain in the same area. Now , the pain has comeback. Keeps her up at night. When lies on L side she has pain under the ribs on L side. Has R LBP when lying on R side. Prior Treatments and Tests None Future Testing and Treatments Planned None Developmental History Developmental History Has had chest pain early last year in the L lateral ribs, sharp pain with breathing and lying on L side. No known previous upper back injury. Previous pregnancies was active all the way through ( 2008 & 06/2017), 11 and 3 yr old daughters. No complications with previous pregnancies. 2nd child had tearing, 2 stitches. No pain with first 2 pregnancies. Treatment Goals Patient/Caregiver Goals Decrease pain and be able to sleep better at night. Prior Functional Status Baseline Function- ADL's Independent Baseline Function- Mobility Independent Baseline Function- Gait Hiking with dogs on trails. Baseline Function- Recreation/Hobbies Exercised daily in gym. Baseline Function- Other Sleeping: Woke 1x/night. Current Functional Impairments (Reported) Functional Limitations- ADL's Walking. Bending over. Lifting. L trunk pain in L sidelie and temporary pain with breathing. Sharp stabbing, deep pain. R LBP, dull. Functional Limitations- Mobility/Gait Walks [place] park loop [address], having limiting pain afterwards. Functional Limitations- Work/School Laid off. Functional Limitations- Other Difficulty sleeping. Waking 3x/night. Personal Factors Other Personal Factors That May Effect 35 weeks , Hypothyroid Therapy/Recovery , bruises easily. PT-OP-C Subjective Start: 11/04/20 08:13 Freq: Status: Active Protocol: Document 11/15/20 12:48 LRN (Rec: 11/15/20 13:35 LRN [id number]) OP-PT Subjective Patient Comments Patient Comments Didn't ex yesterday and is now feeling it. Babywise everything is looking good. Past couple days sleeping better due to different positioning and tired from taking care of kids with the snow. Able to do more steps, iused to be 3000 (before BP was 10,000 steps), now able to do 5000 steps. PT-OP-J Posture/Palpation/Skin Start: 11/04/20 08:13 Freq: Status: Active Protocol: Document 11/04/20 08:18 LRN (Rec: 11/04/20 09:08 LRN [id number]) Posture Evaluation Position Standing Evaluation View All positions L-Spine Posture Increased Lordosis Pelvis Posture Anteriorly Tilted Knee Posture (L) Genu Recurvatum,(R) Genu Recurvatum Comments Posture Comments Protruding abdomen consistent with . Trunk shift left. Anteriorly rotated R innominate. Palpation Assessment Location R innominate Palpation Location R PSIS & ASIS Palpation Details R PSIS is elevated, R ASIS is low (anteriorly rotated innominate) Rib 6-7 intercostal ms Palpation Location Intercostal muscles of Ribs 5 & 6 anteriorly under breasts. Palpation Findings Tenderness Thoracic Spinous Process Palpation Location T5 & T6 with PA pressure Palpation Findings Tenderness R QL/Sacral border Palpation Location R QL/R SIJ/R lateral lower border of Sacrum Palpation Findings Tenderness Palpation Details Posterior R SIJ in standing. Pain radiates up back sometimes PT-OP-K Range of Motion Start: 11/04/20 08:13 Freq: Status: Active Protocol: Document 11/04/20 08:18 LRN (Rec: 11/04/20 09:08 LRN [id number]) Lumbar Spine Range of Motion Lumbar Spine Active Degrees Testing Position Standing Flexion 15 Extension 0 ROM Limitations Pain Comments Ext 0/5 Flex 85/50 (back held in neutral = hip flexion) Lumbar flex 15/10 before onset of pain. R PSIS is high and + November Test (possible mobility restriction) R ASIS is low\ Hip Goniometric Range of Motion Hip Right Passive Comments Sitting active IR is 45 degs Left Passive Comments Sitting active IR is 32 degs PT-OP-M Strength Start: 11/04/20 08:13 Freq: Status: Active Protocol: Document 11/04/20 08:18 LRN (Rec: 11/04/20 09:08 LRN [id number]) Trunk Strength Trunk Manual Muscle Testing Testing Position Sitting Core Stabilization Pt able to perform a TA contraction. Hip Strength Hip Manual Muscle Testing Right External Rotation 5 Normal Internal Rotation 4+ Good+ Left External Rotation 5 Normal Internal Rotation 5 Normal PT-OP-T Assessment and Plan Start: 11/04/20 08:13 Freq: Status: Active Protocol: Document 03/14/21 12:53 LRN (Rec: 03/14/21 12:58 LRN [id number]) Physical Therapy Assessment Goals Four Impairment Lacks appropriate self care HEP. Longterm Goal (LTG) Pt will be independent with a self care HEP. HEP: Clamshell & Sitting BKFO. HANDOUTS: body changes: Muscles That Meet the Challenge LTG Duration 12/06/20 (11/11/20: Progressing) Three Impairment R SIJ pain limiting walking and lifting Short Term Goal (STG) Pt will be educated and demonstrate knowledge of improve standing posturing and proper lifting techniques with a reduction of pain with walking short distances and with lifting. (11/11/20: Handout of posture reviewed) STG Duration 11/18/20 (11/11/20: MET GOAL of pain reduction if on flat surface) Director Of Business Applications Goal (LTG) Decrease R LBP with patient able to tolerate walking for exercise during her . (11/15/20: Walking for exercise with less pain on level - 5000 steps) LTG Duration 12/06/20 Two Impairment Lack of sleep from disruption caused by pain (wakes 3x/night ). Short Term Goal (STG) Pt educated in sidelie positioning with supports to improve comfort of sleeping. STG Duration 11/11/20 (11/20/20: MET GOAL) Director Of Business Applications Goal (LTG) Improve comfort of sleep positioning to decrease sleep disruption associated to trunk and LBP to less than 3x/night due to back or LUQ pain. (11/15/20: Waking 2-3x/night due to bakc pain, LUQ pain is off/on with wearing of looser bra) LTG Duration 12/06/20 (11/15/20: Improved to waking only 2-3x/night) One Impairment RUQ pain under rib limiting mobility Short Term Goal (STG) Pt will be educated in proper bending mechanics for picking up objects off floor. STG Duration 11/11/20 (11/15/20: MET GOAL) Longterm Goal (LTG) Decrease pain with pt able to bend over with minimal discomfort. LTG Duration 12/06/20 Assessment Summary Assessment Pt was last seen 11/15/20 and was at that time ~36 weeks . Pt was able to increase exercise repetitions at hips. Pt became SOB while prone on pillow. Her R SIJ was tender and she had increased ms guarding and tenderness at R sacral border. The pt canceled her remaining appointments due to illness. She did not reschedule for more visits. The pt partially met her goals . Physical Therapy Plan Discharge Physical Therapy Discharge Reasons No Longer Attending PT Discharge Comments Thank you for your referral.
== END 2021-03-15 07:46 | disposition home or self-care (01) ==
LOC: PHYS 12:45
PROVIDERS: PCP Nurse Practitioner Family; Referring Provider Nurse Practitioner Obstetrics & Gynecology; Visit Provider Nurse Practitioner Obstetrics & Gynecology
DX: M54.5 Low back pain (principal); M99.04 Segmental and somatic dysfunction of sacral region; M40.46 Postural lordosis, lumbar region; M54.6 Pain in thoracic spine; M62.81 Muscle weakness (generalized); R29.3 Abnormal posture
CPT/HCPCS: 97010; 97110; 97140; 97162; 97530

== ENCOUNTER 2020-12-05 12:26 | Inpatient (IN) | payer OTHER, MEDICAID, SELFPAY ==
[2020-12-05 13:18] LABS: Add Manual Diff / Slide Review NO; Basophils Absolute Auto 100 /uL (0-100); Basophils Percent Auto 0.9 % (0-2); Eosinophils Absolute Auto 100 /uL (0-450); Hematocrit 35.5 % (36-46); Hemoglobin 11.9 g/dL (12.0-16.0); Lymphocytes Absolute Auto 1600 /uL (1100-4500); Lymphocytes Percent Auto 20.5 % (25-40); Mean Corpuscular HGB Conc 33.4 % (30-36); Mean Corpuscular Hemoglobin 29.7 PG (26-34); Mean Corpuscular Volume 88.7 fL (80-100); Monocytes Absolute Auto 800 /uL (0-900); Monocytes Percent Auto 9.6 % (3-14); Neutrophils Absolute Auto 5400 /uL (1500-7000); Platelet Count 233 X10^3/uL (150-400); Red Cell Distribution Width 15.7 % (11.6-14.8)
[2020-12-05] MEDS: LACTATED RINGERS 1,000 ML 100 ML IV ×2 (13:31→16:26)
[2020-12-05] MEDS: PENICILLIN G POTASSIUM 5,000,000 UNIT in DEXTROSE 5% IN WATER 250 ML IV (13:32)
[2020-12-05 13:41] LABS: COVID19 -Nasal RAPID Negative (Negative)
--- NOTE | 2020-12-05 15:13 | P.HPOB_ITS ---
OB HPI Date/Time Date of admission: 12/05/20 Date Patient Seen: 12/05/20 Time Patient Seen: 13:15 History of Present Condition Chief complaint: Obs : 5 Para: 2 Estimated Date of Delivery: 12/06/20 Estimated Gestational Age (weeks): 39.6 Narrative: Mandy Schneider is a 30 year old female @ 39wks 6 days by LMP and 7wk US who presents for elective IOL. Has been jessica all night, but then they slowed down arounf 7am and have been irregular ever since. Is tired and frustrated and worried about not getting adequate treatment for GBS positive status. Lots of FM. Uncomplicated PN care w/ CNM. Indications Indication for induction OB: maternal discomfort History of Present care: good care, initiated at week # (7) and number of visits (11) Dating criteria: LMP confirmed by 1st trimester US Ultrasounds: normal mid trimester US Obstetrical complications: other (anemia (Hgb/Hct-10.6/31.2@26wks)) Medical complications: other (hypothyroid- stable on levothyroxine 50mcg) Preadmission Labs Blood type: 0 (-) negative -: Antibody screen: negative, GBS status: positive, HBsAG: negative, HIV: negative and RPR/VDLR: negative -: Rubella: immune HCT: 35.5 HCAB: negative Cell-free DNA: Negative/female 1 hr GTT: 158 3 hr GTT: 1 hr (118), 2 hr (110) and 3 hr (124) Fasting blood glucose: 77 Prior (ies) History: 05/01/2009: NSVB @ 40wks, 7#Female, no complications 08/30/15: EAB @ 11wks 07/24/2017: NSVB @ 40wks, 7#7oz Female, epidural, no complications 08/30/2019: SAB @ 6wks Evaluation Evaluation Baseline heart rate: 125 Variability: Moderate (11-25) monitor accelerations: Present monitor decelerations: Absent Contraction Frequency (minutes): 10 Uterine Contraction Intensity: Mild Status: Category l Cervical dilation (cm): 4 Cervical effacement (%): 50 station: -3 Laboratory results: Laboratory Tests 12/05/20 12/05/20 12/05/20 13:00 13:00 13:15 WBC 8.0 RBC 4.00 Hgb 11.9 L Hct 35.5 L MCV 88.7 MCH 29.7 MCHC 33.4 RDW 15.7 H Plt Count 233 Neut % (Auto) 68.0 Lymph % (Auto) 20.5 L Lander % (Auto) 9.6 Eos % (Auto) 1.0 L Baso % (Auto) 0.9 Neut # (Auto) 5400 Lymph # (Auto) 1600 Lander # (Auto) 800 Eos # (Auto) 100 Baso # (Auto) 100 SARS-CoV-2 (PCR) Negative Blood Type O Negative Antibody Screen Negative COUNTS INCLUDE 234 BEDS AT THE [facility] Medical History (Updated 12/05/20 @ 15:29 by Tali Pearce CNM) Anemia (~2016) Chicken pox (~1992) Headache (~2018) Hypothyroid in , antepartum Intermittent chest pain Intermittent palpitations Iron deficiency Lightheaded Painful menstrual periods (~2017) Patient request for diagnostic testing Temporomandibular joint (TMJ) pain Surgical History Anesthesia [place] teeth removed (~2007) Family History Grandmother Breast cancer Social History Smoking Status: Never smoker second hand exposure: No alcohol intake: current substance use type: does not use Meds Home Medications and Allergies Home Medications Medication Instructions Recorded Confirmed Type levothyroxine 50 mcg PO DAILY 10/06/20 10/06/20 History Allergies Allergy/AdvReac Type Severity Reaction Status Date / Time No Known Drug Allergies Allergy Verified 10/06/20 20:07 Review of Systems Review of Systems ROS: Yes All systems reviewed with the patient and are negative except as otherwise documented Exam Vital Signs (past 8 hours): BP 105/60, HR 93, T 36.1C Temporal Resp Auscultation: clear to auscultation bilaterally Cardio Rate: regular rate Rhythm: regular rhythm Heart Sounds: S1 normal and S2 normal Presentation: vertex Objective Labs Result Diagrams: 12/05/20 13:00 Labs: Laboratory Results - last 24 hr 12/05/20 12/05/20 12/05/20 13:00 13:00 13:15 WBC 8.0 RBC 4.00 Hgb 11.9 L Hct 35.5 L MCV 88.7 MCH 29.7 MCHC 33.4 RDW 15.7 H Plt Count 233 Neut % (Auto) 68.0 Lymph % (Auto) 20.5 L Lander % (Auto) 9.6 Eos % (Auto) 1.0 L Baso % (Auto) 0.9 Neut # (Auto) 5400 Lymph # (Auto) 1600 Lander # (Auto) 800 Eos # (Auto) 100 Baso # (Auto) 100 SARS-CoV-2 (PCR) Negative Blood Type O Negative Antibody Screen Negative Assessment and Plan Assessment and Plan Assessment and Plan narrative: A: Term multipara Hypothyroid, stable on levothyroxine GBS porphylaxis indicated Elective IOL Cat I FHR P: Admit, routine orders w/ PCN for GBS prophylaxis. Will consider AROM for labor indiction after 3 hours of PCN treatment. Labor support PRN. Epidural JIHAN, if requested. Reassess @ [phone].
[2020-12-05] MEDS: FENT 2MCG/ML BUPIV 0.125% EPI 200 MCG/100 ML PLAST..BAG 12 MCG EPIDURAL (16:26)
--- NOTE | 2020-12-05 16:36 | PM.OBPNLAB ---
Date/Time Date Patient Seen: 12/05/20 Time Patient Seen: 16:30 Pain Control Pain control: epidural Comments: Contractions have steadily increased in frequency and intensity since admission. Patient received epidural w/ good relief. Consents to AROM for augmentation at this time. Pelvic Exam Dilation (cm): 5 Effacement (%): 80 station: -2 Amniotic membrane status: Ruptured (AROM, light meconium) Contractions Contractions on admission: irregular Monitor mode: External Pitocin rate (mU/min): 0 Contraction frequency (min): 3 Contraction duration (min): 1 Contraction pattern: Regular Contraction intensity: Moderate Status status: Category l Heart Rate Baseline: 135 Monitor Accelerations: Present Monitor Decelerations: Variable Monitor Variability: Moderate Assessment and Plan Assessment: active labor Plan: continuous present management Comments: Reassess in 4 hours or sooner, PRN.
[2020-12-05 17:00] VITALS: BP 105/60
[2020-12-05] MEDS: PENICILLIN G POTASSIUM 3,000,000 UNIT/50 ML FROZ.PIGGY 100 UNIT IV (17:28)
--- NOTE | 2020-12-05 20:22 | PM.OBPNLAB ---
Date/Time Date Patient Seen: 12/05/20 Time Patient Seen: 19:36 Pain Control Pain control: epidural Comments: Called by RN for patient report of feeling lightheaded, nauseous and about to pass out. Patient sat up in bed in high zapata's and feels much better now. Pelvic Exam Dilation (cm): 8 Effacement (%): 90 station: 0 Amniotic membrane status: Ruptured (AROM, light meconium) Comments: CE @1950 clear fluid w/ bloody show Contractions Monitor mode: External Pitocin rate (mU/min): 0 Contraction frequency (min): 3 Contraction pattern: Regular Contraction intensity: Moderate Status status: Category l Heart Rate Baseline: 135 Monitor Accelerations: Present Monitor Decelerations: Variable Monitor Variability: Moderate Assessment and Plan Assessment: active labor Plan: continuous present management Comments: FHR variables and maternal hypotensive symptoms resolved w/ position changes, no further interventions indicated. Continue expectant management of labor. Reassess in 2-4 hours or [place] christineN.
--- NOTE | 2020-12-05 21:11 | PM.OBPRVD ---
Labor & Delivery Delivery date: 12/05/20 Intrapartal Events: None Cervical ripening method: none Induction method: none Delivery augmentation: rupture of membranes Delivery monitor: external FHT and external uterine Route of delivery: L&D Laceration Description: None Estimated blood loss (mL): 500 Anesthesia Type: Epidural Narrative: Mandy labored well with an epidural. She began to feel increased rectal pressure and was C/C/+2. Minimal coaching and a few short pushed led to a NSVB of a vigorous baby girl in AVNI position, sommersaulted through a single loose nuchal cord. was placed on maternal abdomen for drying and skin to skin. 10 units of pitocin was added to remaining 400mL LR for AMTSL. After cessation of pulsation, the cord was double clamped by CNM and cut by FOB. Cord blood sample was collected. Gentle cord traction led to a spontaneous, Schultze delivery of an apparently intact placenta with a large volume of blood in the membranes. 3VC. Fundus immediately firm and bleeding minimal. Vagina and perineum inspected and intact. QBL 500mL. Both mother and baby stable and skin to skin as I left the room. Baby 1: Infant gender: Female Presentation: vertex Position: Left Occiput Anterior Placenta delivery description: Spontaneous Cord Vessel Description: 3 Vessels and Nuchal Cord (1 loose) score (1 min): 8 score (5 min): 9 Plan for aftercare: Routine care
[2020-12-05] MEDS: KETOROLAC 30 MG/ML VIAL IV (23:13)
[2020-12-05] MEDS: ACETAMINOPHEN 325 MG TABLET 650 MG PO (23:15)
[2020-12-06] MEDS: ACETAMINOPHEN 325 MG TABLET 650 MG PO ×3 (05:40→18:18)
[2020-12-06] MEDS: LANOLIN OINT 7 GM 1 APPLIC TOP (05:40)
[2020-12-06] MEDS: IBUPROFEN 600 MG TABLET PO ×3 (05:41→18:18)
[2020-12-06] MEDS: LEVOTHYROXINE 50 MCG TABLET PO (08:01)
--- NOTE | 2020-12-06 13:51 | PM.OBDS.1 ---
Discharge Providers Provider Date of admission: 12/05/20 12:26 Discharge Date: 12/06/20 Primary care physician: NOE White Consults: 12/06/20 21:09 Consult to Dividend Deposit Voucher Clerk Routine Comment: Discharge provider: Tali Pearce CNM Summary Discharge Diagnosis (1) Encounter for full-term uncomplicated delivery: Status: Acute Problem Details: Routine PP course. Voiding, ambulating and independently. Tolerating general diet. Minimal pain well controlled w/ PO medications. Period like vaginal bleeding. Eager for discharge to home. Time Spent with Patient Time attestation: Total time spent providing and/or coordinating discharge services: Objective Labs Result Diagrams: 12/05/20 13:00 Labs: Laboratory Results - last 24 hr 12/05/20 13:00 Blood Type O Negative Antibody Screen Negative Exam Vital Signs (past 8 hours): BP 111/72, HR 82bpm, RR 16/min, T 98.1F Temporal Other: Fundus firm @ umbilicus. Lochia light, no clots. Perineum intact. Discharge Plan Discharge Plan Patient Disposition: Home Discharge orders & Medications Prescriptions: New ibuprofen 600 mg Tablet 600 mg PO Q6HR PRN (Reason: Pain, Mild (1-3)) 14 Days Qty: 60 RF: 0 Discontinued levothyroxine 50 mcg tablet 50 mcg PO DAILY RF: 0 Follow up/Referrals: Kevon Watkins ARNP [Primary Care Provider] - Tali Pearce CNM [Advanced Associate Trainer] - (Follow-up @ 2wks postpaprtum by Telehealth 12/15/20 @ 3pm Follow-up @ 6wks in office 01/16/21 @ 3pm) Diet/Activity/Treatments Diet: Diet as Tolerated Activity: pelvic rest x 6 weeks Skin/Wound/Dressing Care Report to your healthcare provider any signs of infection, such as:: chills, fever, increased pain, unusual drainage and unusual redness Visit Report/Discharge Packet Instructions: DI for Depression Discharge Data Primary Care Provider: Kevon Watkins
[2020-12-06 19:16] VITALS: BP 105/60; PULSE 80; RESP 17; TEMP 36.8
== END 2020-12-06 19:35 | disposition home or self-care (01) | DRG 560 ==
PROVIDERS: Admitting Provider Nurse Practitioner Obstetrics & Gynecology; PCP Nurse Practitioner Family; Referring Provider Nurse Practitioner Obstetrics & Gynecology; Visit Provider Nurse Practitioner Obstetrics & Gynecology
DX: O75.81 Maternal exhaustion complicating labor and delivery (principal); O99.824 Streptococcus B carrier state complicating childbirth; Z3A.39 39 weeks gestation of pregnancy; Z37.0 Single live birth; O99.284 Endocrine, nutritional and metabolic diseases complicating childbirth; E03.9 Hypothyroidism, unspecified; O99.02 Anemia complicating childbirth; D64.9 Anemia, unspecified; O77.0 Labor and delivery complicated by meconium in amniotic fluid; O69.81X0 Labor and delivery complicated by cord around neck, without compression, not applicable or unspecified; Z20.822 Contact with and (suspected) exposure to COVID-19
CPT/HCPCS: 01967; 36415; 59050; 85025; 86850; 86870; 86900; 86901; 87635; C9803; G0379; J1885; J2540

== ENCOUNTER → 2021-08-17 15:47 | Outpatient (CLI) | payer OTHER, MEDICAID, SELFPAY ==
--- NOTE | 2021-08-17 15:51 | DI.RAD.S_ITS ---
PROCEDURE: XR WRIST LT MIN 3V INDICATIONS: pain swelling of left forearm TECHNIQUE: 4 views of the wrist were acquired. COMPARISON: None. FINDINGS: Bones: There is a transverse, minimally impacted distal left radial metaphyseal fracture with possible intra-articular extension to the radiocarpal joint. Overlying soft tissue edema. Overall alignment is anatomic. Joint spaces are maintained. Scaphoid view: Scaphoid appears intact. Scapholunate interval is maintained. Soft tissues: No suspicious soft tissue calcifications. IMPRESSION: Transverse, minimally impacted fracture of the distal left radial metaphysis with possible intra-articular extension. Dictated by: Patricio Pollock M.D. on 08/17/2021 at 16:22 Approved by: Patricio Pollock M.D. on 08/17/2021 at 16:23
--- NOTE | 2021-08-17 15:51 | DI.RAD.S_ITS ---
PROCEDURE: XR FOREARM LT 2V INDICATIONS: fall TECHNIQUE: 2 views of the forearm were acquired. COMPARISON: None. FINDINGS: Bones: There is a transverse , nondisplaced fracture involving the distal left radial metaphysis. Overlying soft tissue swelling. No suspicious bony lesions. Soft tissues: No suspicious soft tissue calcifications or masses. IMPRESSION: Transverse, nondisplaced fracture of the distal left radial metaphysis. Dictated by: Patricio Pollock M.D. on 08/17/2021 at 16:21 Approved by: Patricio Pollock M.D. on 08/17/2021 at 16:22
== END ==
PROVIDERS: PCP Nurse Practitioner Family; Referring Provider Physician Assistant; Visit Provider Physician Assistant
DX: M79.89 Other specified soft tissue disorders; W19.XXXA Unspecified fall, initial encounter; S52.325A Nondisplaced transverse fracture of shaft of left radius, initial encounter for closed fracture; M79.632 Pain in left forearm
CPT/HCPCS: 73090; 73110

== ENCOUNTER → 2021-10-24 10:07 | Outpatient (CLI) | payer OTHER, MEDICAID, SELFPAY ==
[2021-10-24 11:43] LABS: Add Manual Diff / Slide Review NO; Basophils Absolute Auto 0 /uL (0-100); Basophils Percent Auto 0.7 % (0-2); Eosinophils Absolute Auto 100 /uL (0-450); Eosinophils Percent Auto 1.6 % (2-4); Hemoglobin 12.6 g/dL (12.0-16.0); Lymphocytes Absolute Auto 2100 /uL (1100-4500); Mean Corpuscular Volume 91.4 fL (80-100); Monocytes Absolute Auto 600 /uL (0-900); Monocytes Percent Auto 8.8 % (3-14); Neutrophils Absolute Auto 3600 /uL (1500-7000); Neutrophils Percent Auto 55.9 % (50-75); Platelet Count 251 X10^3/uL (150-400); Red Blood Cell Count 4.05 X10^6/uL (4.0-5.2); Red Cell Distribution Width 13.9 % (11.6-14.8); White Blood Cell Count 6.5 X10^3/uL (4.5-11.0)
[2021-10-24 12:33] LABS: Alanine Aminotransferase 23 IU/L (<35); Albumin 4.6 g/dL (3.5-5.0); Albumin Globulin Ratio 1.8 (1.0-2.8); Alkaline Phosphatase 66 U/L (38-126); Aspartate Aminotransferase 29 IU/L (14-36); BUN Creatinine Ratio 19.6 (6-22); Bilirubin Total 0.7 mg/dL (0.2-1.3); Blood Urea Nitrogen 18 mg/dL (7-17); Calcium 9.5 mg/dL (8.4-10.2); Carbon Dioxide 26 mmol/L (22-32); Chloride 103 mmol/L (98-107); Cholesterol 190 mg/dL (140-199); Estimated Glomerular Filt Rate > 60.0 mL/min (>60); Globulin 2.6 g/dL (1.7-4.1); Glucose 86 mg/dL (70-100); HEMOLYSIS < 15 (0-50); Sodium 137 mmol/L (137-145); Total Protein 7.2 g/dL (6.3-8.2); Triglycerides 98 mg/dL (35-150)
[2021-10-24 12:43] LABS: Free T4, Direct Thyroxine 0.74 ng/dL (0.78-2.19)
[2021-10-24 12:57] LABS: Thyroid Stimulating Hormone 3.06 uIU/mL (0.47-4.68)
[2021-10-24 13:06] LABS: HDL Cholesterol 126 mg/dL (40-60); LDL Cholesterol Calculated 44 mg/dL (<100)
== END ==
PROVIDERS: PCP Nurse Practitioner Family; Referring Provider Nurse Practitioner Family; Visit Provider Nurse Practitioner Family
DX: Z00.00 Encounter for general adult medical examination without abnormal findings (principal); E61.1 Iron deficiency; O99.280 Endocrine, nutritional and metabolic diseases complicating pregnancy, unspecified trimester; E03.9 Hypothyroidism, unspecified; Z13.6 Encounter for screening for cardiovascular disorders
CPT/HCPCS: 36415; 80053; 80061; 84439; 84443; 85025

== ENCOUNTER 2022-03-02 09:28 | Emergency (ER) | payer OTHER, MEDICAID, SELFPAY ==
[2022-03-02 09:37] VITALS: BP 131/90; PULSE 85; RESP 18; TEMP 35.9; O2SAT 98; BMI 24.6
--- NOTE | 2022-03-02 09:44 | ED_ITS ---
HPI - General Adult General Chief complaint: Urogenital-Female Stated complaint: lower back pain - abdominal pain Time Seen by Provider: 03/02/22 09:35 Source: patient Mode of arrival: Family Vehicle History of Present Illness HPI narrative: 32-year-old female who is here for evaluation of approximately 12 hours of bilateral back discomfort. She stated that she was lying in bed last night when she started to have pain in her back. Had tried a heating pad and also light stretching. No fevers. Did have some dysuria this morning but none last night. No rashes. No abdominal pain. No nausea vomiting. Is having some vaginal discharge. Is also having some diarrhea over the past couple days as well. Related Data Home Medications Medication Instructions Recorded Confirmed levothyroxine 25 mcg capsule 25 mcg PO DAILY 08/17/21 10/24/21 Previous Rx's Medication Instructions Recorded methocarbamol 750 mg tablet 750 mg PO Q8H PRN #30 tab 03/02/22 Allergies Allergy/AdvReac Type Severity Reaction Status Date / Time No Known Drug Allergies Allergy Verified 03/02/22 09:44 Review of Systems Constitutional Constitutional: Reports system reviewed and no additional complaints, except as documented Cardiovascular Cardiovascular: Reports system reviewed and no additional complaints, except as documented Respiratory Respiratory: Reports system reviewed and no additional complaints, except as documented Gastrointestinal Gastrointestinal: Reports system reviewed and no additional complaints, except as documented Genitourinary Genitourinary: Reports system reviewed and no additional complaints, except as documented Musculoskeletal Musculoskeletal: Reports system reviewed and no additional complaints, except as documented Integumentary/Breasts Skin/Breast: Reports system reviewed and no additional complaints, except as documented Hematologic/Lymphatic On Anticoagulants: No Patient History Medical History Anemia (~2017) Anemia affecting Chicken pox (~1992) Dyspepsia Headache (~2018) Hypothyroid in , antepartum Intermittent chest pain Intermittent palpitations Iron deficiency Lightheaded Painful menstrual periods (~2017) Patient request for diagnostic testing Spontaneous vaginal delivery Temporomandibular joint (TMJ) pain Surgical History Anesthesia [employer] teeth removed (~2007) Family History Grandmother Breast cancer Social History Smoking Status: Never smoker second hand exposure: No alcohol intake: current substance use type: does not use Smoking Status: Never smoker alcohol intake frequency: 0-2 drinks per day Substance Use Type: does not use Exam Initial Vital Signs Initial Vital Signs: Vital Signs Temperature 96.6 F L 03/02/22 09:37 Pulse Rate 85 03/02/22 09:37 Respiratory Rate 18 03/02/22 09:37 Blood Pressure 131/90 03/02/22 09:37 Pulse Oximetry 98 03/02/22 09:37 HENMT Head: normal to inspection and normocephalic Resp Effort & Inspection: normal respiratory effort Auscultation: clear to auscultation bilaterally Cardio Rate: regular rate Rhythm: regular rhythm GI Inspection: normal to inspection and non-distended Palpation: No tender Back/Spine/Pelvis Other: Bilateral paraspinal thoracolumbar discomfort. Skin General: no rashes or lesions noted Neuro General: patient alert, patient awake, patient oriented x3 and moves all extremities Extrem General: normal to inspection and capillary refill normal Psych Appearance: grossly normal and well kempt Course Orders Ordered: ED Orders 03/02/22 10:01 Urine Culture Stat Urine Microscopic Stat 03/02/22 10:18 CT kidney ureter bladder (KUB) Stat Vital Signs Vital signs: Vital Signs - 8 hr 03/02/22 09:37 Temperature 96.6 F L Pulse Rate 85 Respiratory Rate 18 Blood Pressure 131/90 Pulse Oximetry 98 Medical Decision Making Lab Data Labs: Lab Results 03/02/22 Range/Units 10:01 Urine RBC 0-1/hpf (0-5/HPF) Urine WBC 1-5/hpf (0-5/HPF) Ur Squamous Epith Cells 5-10 /hpf H (0-5/HPF) Amorphous Sediment 1+ Urine Bacteria Few (2-10) H (None) Ur Culture Indicated? Culture not indicate Point of Care Testing Test Results Negative Urine Dip Bedside Urine Glucose Negative Bedside Urine Bilirubin - Negative Bedside Urine Ketone - Negative Urine Specific [place] 1.010 Bedside Urine Occult Blood +/- Bedside Urine pH 6 Bedside Urine Protein - Negative Bedside Urine Urobilinogen - Negative Bedside Urine Nitrite - Negative Bedside Urine Leukocytes - Negative Esterase Point of care testing: Point of Care Testing Test Results Negative Urine Dip Bedside Urine Glucose Negative Bedside Urine Bilirubin - Negative Bedside Urine Ketone - Negative Urine Specific [place] 1.010 Bedside Urine Occult Blood +/- Bedside Urine pH 6 Bedside Urine Protein - Negative Bedside Urine Urobilinogen - Negative Bedside Urine Nitrite - Negative Bedside Urine Leukocytes - Negative Esterase Imaging Data CT scan - abdomen/pelvis: Radiologist's Impression: [address] [address] [address] Scan Report Signed Patient: Mandy Schneider MR#: [id number] : 1990 Acct:[id number] Age/Sex: 32 / F Date of Service: 03/02/22 Loc: ED Accession Number: [id number] ?? Procedure: CT kidney ureter bladder (KUB) Ordering Provider: Prudencio Abel D.O. PROCEDURE:? CT KIDNEY URETER BLADDER (KUB) ? INDICATIONS:? R>L flank pain with hematuria eval for stone ? TECHNIQUE:? Axial sections were acquired from the lung bases to the pubic symphysis.? Coronal and sagittal reformats were performed.? For radiation dose reduction, the following was used: ?automated exposure control, adjustment of mA and/or kV according to patient s ize.? ? COMPARISON:? None. ? FINDINGS:? Image quality:? Excellent.? ? Lung bases:? Unremarkable.? ? Heart:? No significant findings. ? URINARY: Right Kidney: ? No stones or hydronephrosis.? Right Ureter:? No hydroureter.? ? Left Kidney: ? No stones or hydronephrosis. Left Ureter:? No hydroureter.? ? Bladder:? Normal wall thickness. No stones. ? ? ? ABDOMEN: Liver:? Unremarkable.? ? Gallbladder:? Unremarkable.? ? Biliary ducts:? Unremarkable.? ? Pancreas:? Unremarkable.? ? Spleen:? Unremarkable.? ? Adrenal Glands:? Unremarkable.? ? ? Stomach and Bowel:? Stomach, small bowel loops, and colon are unremarkable.? Normal appendix. Peritoneum:? No abnormal intraperitoneal fluid.? No free air.? ? Ventral Wall: ? No hernia.? Abdominal Nodes:? No enlarged retroperitoneal or mesenteric lymph nodes.? Vessels:? Aorta and inferior vena cava are normal in size.? ? PELVIS: Pelvic Organs:? Probable left ovarian cyst measuring 1.8 cm.? Trace free fluid in the pelvis.? ? Pelvic Nodes: Unremarkable. Miscellaneous: No inguinal hernias are seen. ? ? ? Bones:? No suspicious lesion. ? IMPRESSION:? No kidney stones demonstrated.? No hydronephrosis.? Normal appendix. ? ? Dictated by: Bar Larios M.D. on 03/02/2022 at 11:13 ? ? Approved by: Bar Larios M.D. on 03/02/2022 at 11:17? MDM Narrative Medical decision making narrative: CT scan shows no signs of kidney stone or other emergent intra-abdominal pathology. Urinalysis has hematuria but no other signs of infection. I do suspect musculoskeletal given the location of the symptoms. There is no rash over the area. Plan will be is start her on muscle relaxers although we did have a discussion that if these do not help her symptoms she should stop taking them because I am not 100% convinced that this is a muscle spasm. We discussed other conservative measures to include heat ice and massage. She expressed understanding and agreement high. Discharge Plan Departure Patient Disposition: Home Clinical Impression: Back pain Instructions: DI for Low Back Pain Activity Restrictions/Additional Instructions: Continue to take all of your medications as directed. I do recommend that you use heat and ice and massage and anti-inflammatories like we discussed. Use the muscle relaxers as needed as well. Contact your primary doctor for follow-up. Return to the emergency department for any new or worsening symptoms. Prescriptions: New methocarbamol 750 mg tablet 750 mg PO Q8H PRN (Reason: muscle spasm) Qty: 30 0RF No Action levothyroxine 25 mcg capsule 25 mcg PO DAILY 0RF Referrals: Kevon Watkins ARNP [Primary Care Provider] -
--- NOTE | 2022-03-02 10:18 | DI.CT.S_ITS ---
PROCEDURE: CT KIDNEY URETER BLADDER (KUB) INDICATIONS: R>L flank pain with hematuria eval for stone TECHNIQUE: Axial sections were acquired from the lung bases to the pubic symphysis. Coronal and sagittal reformats were performed. For radiation dose reduction, the following was used: automated exposure control, adjustment of mA and/or kV according to patient size. COMPARISON: None. FINDINGS: Image quality: Excellent. Lung bases: Unremarkable. Heart: No significant findings. URINARY: Right Kidney: No stones or hydronephrosis. Right Ureter: No hydroureter. Left Kidney: No stones or hydronephrosis. Left Ureter: No hydroureter. Bladder: Normal wall thickness. No stones. ABDOMEN: Liver: Unremarkable. Gallbladder: Unremarkable. Biliary ducts: Unremarkable. Pancreas: Unremarkable. Spleen: Unremarkable. Adrenal Glands: Unremarkable. Stomach and Bowel: Stomach, small bowel loops, and colon are unremarkable. Normal appendix. Peritoneum: No abnormal intraperitoneal fluid. No free air. Ventral Wall: No hernia. Abdominal Nodes: No enlarged retroperitoneal or mesenteric lymph nodes. Vessels: Aorta and inferior vena cava are normal in size. PELVIS: Pelvic Organs: Probable left ovarian cyst measuring 1.8 cm. Trace free fluid in the pelvis. Pelvic Nodes: Unremarkable. Miscellaneous: No inguinal hernias are seen. Bones: No suspicious lesion. IMPRESSION: No kidney stones demonstrated. No hydronephrosis. Normal appendix. Dictated by: Bar Larios M.D. on 03/02/2022 at 11:13 Approved by: Bar Larios M.D. on 03/02/2022 at 11:17
[2022-03-02 10:25] LABS: Amorphous Sediment Urine 1+; Bacteria Urine Few (2-10); RBC Urine 0-1/HPF (0-5/HPF); Squamous Epithelial Cell Urine 5-10 /HPF (0-5/HPF); WBC Urine 1-5/HPF (0-5/HPF)
[2022-03-02 10:45] VITALS: BP 130/70; PULSE 80; RESP 18; O2SAT 99
[2022-03-02 11:50] VITALS: BP 128/89; PULSE 80; RESP 17; O2SAT 100
== END 2022-03-02 11:50 | disposition home or self-care (01) ==
PROVIDERS: Emergency Provider Emergency Medicine; PCP Nurse Practitioner Family
DX: M54.50 Low back pain, unspecified (principal); R31.9 Hematuria, unspecified; M62.830 Muscle spasm of back
CPT/HCPCS: 74176; 81003; 81015; 81025; 87086; 99283

== ENCOUNTER → 2022-07-25 14:28 | Outpatient (CLI) | payer OTHER, MEDICAID, SELFPAY ==
[2022-07-25 15:13] LABS: Add Manual Diff / Slide Review NO; Basophils Absolute Auto 0 /uL (0-100); Basophils Percent Auto 0.7 % (0-2); Eosinophils Absolute Auto 100 /uL (0-450); Eosinophils Percent Auto 1.5 % (2-4); Hematocrit 35.6 % (36-46); Lymphocytes Absolute Auto 2200 /uL (1100-4500); Lymphocytes Percent Auto 35.6 % (25-40); Mean Corpuscular HGB Conc 33.6 % (30-36); Mean Corpuscular Hemoglobin 30.2 PG (26-34); Mean Corpuscular Volume 89.7 fL (80-100); Monocytes Absolute Auto 600 /uL (0-900); Monocytes Percent Auto 9.1 % (3-14); Neutrophils Absolute Auto 3300 /uL (1500-7000); Neutrophils Percent Auto 53.1 % (50-75); Platelet Count 308 X10^3/uL (150-400); Red Blood Cell Count 3.97 X10^6/uL (4.0-5.2); Red Cell Distribution Width 13.5 % (11.6-14.8); White Blood Cell Count 6.1 X10^3/uL (4.5-11.0)
[2022-07-25 15:35] LABS: Alanine Aminotransferase 19 IU/L (<35); Albumin Globulin Ratio 1.4 (1.0-2.8); Alkaline Phosphatase 49 U/L (38-126); Aspartate Aminotransferase 21 IU/L (14-36); BUN Creatinine Ratio 14.9 (6-22); Bilirubin Total 0.2 mg/dL (0.2-1.3); Blood Urea Nitrogen 11 mg/dL (7-17); Calcium 8.8 mg/dL (8.4-10.2); Carbon Dioxide 27 mmol/L (22-32); Chloride 103 mmol/L (98-107); Estimated Glomerular Filt Rate > 60 mL/min (>60); Globulin 2.8 g/dL (1.7-4.1); Glucose 93 mg/dL (70-100); HEMOLYSIS < 15 (0-50); Potassium 4.1 mmol/L (3.4-5.1); Sodium 137 mmol/L (137-145); Total Protein 6.8 g/dL (6.3-8.2)
[2022-07-25 15:40] LABS: Vitamin D 25 Hydroxy (D3) 72.3 ng/mL (30.0-100.0)
[2022-07-25 15:55] LABS: TSH w/ Reflex to FT4 2.35 uIU/mL (0.47-4.68)
[2022-07-25 16:24] LABS: Vitamin B12 760 pg/mL (239-931)
[2022-07-26 06:36] LABS: Thyroid Peroxidase Antibodies <8 IU/mL (0-34)
== END ==
PROVIDERS: PCP Family Medicine; Referring Provider Family Medicine; Visit Provider Family Medicine
DX: E03.9 Hypothyroidism, unspecified (principal)
CPT/HCPCS: 36415; 80053; 82306; 82607; 84443; 85025; 86376

== ENCOUNTER 2022-08-25 21:34 | Emergency (ER) | payer OTHER, MEDICAID, SELFPAY ==
[2022-08-25 21:40] VITALS: BP 111/72; PULSE 120; RESP 19; TEMP 39; O2SAT 97; BMI 25.4
[2022-08-25 22:48] LABS: Influenza A - CEPHEID Flu A POSITIVE (NEGATIVE); Influenza B - CEPHEID Flu B NEGATIVE (NEGATIVE)
[2022-08-25 22:56] LABS: COVID-19 CEPHEID 4-PLEX PCR Negative (Negative)
[2022-08-25 23:19] VITALS: PULSE 110; O2SAT 98
[2022-08-25 23:20] VITALS: BP 121/82; PULSE 109; TEMP 37.7; O2SAT 98
[2022-08-25 23:30] VITALS: PULSE 111; RESP 24; O2SAT 100
[2022-08-26 00:47] VITALS: BP 130/84; PULSE 114; TEMP 38.8; O2SAT 97
--- NOTE | 2022-08-26 01:01 | ED.URI ---
HPI - URI/Sore Throat General Chief Complaint: Abdominal Pain Stated Complaint: Fever 105F, ABD pain #8 Time Seen by Provider: 08/26/22 00:34 Source: patient Mode of arrival: Ambulatory History of Present Illness HPI Narrative: Patient is a 32-year-old healthy female who presents with fever body aches and abdominal pain. She says she woke up this morning feeling like absolute crap. She said body aches chills all day. sHe said her fever was really high she are really nauseous and worried her. She has no significant shortness of breath. Belly pain has gotten significantly better since being in the ED. Related Data Home Medications Medication Instructions Recorded Confirmed naltrexone 50 mg tablet 50 mg PO DAILY 07/25/22 07/25/22 thyroid (pork) 15 mg tablet 15 mg PO DAILY 07/25/22 07/25/22 ([place] Thyroid) Allergies Allergy/AdvReac Type Severity Reaction Status Date / Time No Known Drug Allergies Allergy Verified 07/25/22 08:02 Review of Systems Review of Systems Narrative: GENERAL: See HPI HEENT: Denies sinus pain, ear pain, sore throat, difficulty swallowing, neck pain RESPIRATORY: Denies dyspnea, cough, wheezing, hemoptysis, sputum. CARDIOVASCULAR: Denies chest pain, palpitations, orthopnea, edema GASTROINTESTINAL: See HPI : Denies dysuria, frequency, incontinence, hematuria, urinary retention, flank pain. MUSCULOSKELETAL: Denies weakness, joint pain, or bony pain SKIN: No rash, no erythema, no pruritus NEUROLOGIC: Denies weakness, dizziness, headache, numbness, change in speech, confusion PSYCHIATRIC: No concerning psychosocial issues. 12 point review of systems is negative except for those stated above and HPI Patient History Medical History Anemia (~2016) Anemia affecting Chicken pox (~1992) Dyspepsia Headache (~2018) Hypothyroid Iron deficiency Myalgia Painful menstrual periods (~2017) Spontaneous vaginal delivery Surgical History Anesthesia [place] teeth removed (~2007) Family History Grandmother Breast cancer Social History Smoking Status: Never smoker second hand exposure: No alcohol intake: current substance use type: does not use Smoking Status: Never smoker alcohol intake frequency: 0-2 drinks per day Substance Use Type: does not use Exam Initial Vital Signs Initial Vital Signs: Vital Signs Temperature 102.2 F H 08/25/22 21:40 Pulse Rate 120 H 08/25/22 21:40 Respiratory Rate 19 08/25/22 21:40 Blood Pressure 111/72 08/25/22 21:40 Pulse Oximetry 97 08/25/22 21:40 Oxygen Delivery Method 08/25/22 21:40 GENERAL: 32-year-old female warm to touch appears to not feel well but no acute distress HEENT: Head atraumatic,EOMI, pupils reactive, face symmetric, moist mucous membranes neck is supple no meningeal signs CARDIOVASCULAR: Regular rate and rhythm without murmurs, rubs or gallops. RESPIRATORY: Breath sounds equal bilaterally, no wheezes rales or rhonchi. ABDOMEN: Soft, minimal epigastric pain no guarding no rebound EXTREMITIES: Normal range of motion, no clubbing or edema. Neurovascularly intact NEUROLOGICAL: Alert and oriented x4.Normal gait and speech. SKIN: Warm, dry, no laceration, no petechiae, no rashes or lesions. Course Orders Ordered: ED Orders 08/25/22 21:50 Covid-19 + FLU A/B by PCR Stat Discontinued Medications Ibuprofen (Ibuprofen 400 Mg Tablet) 800 mg PO NOW ONE Stop: 08/26/22 01:03 Last Admin: 08/26/22 01:12 Dose: 800 mg Documented By: SB Vital Signs Vital signs: Vital Signs - 8 hr 08/25/22 21:40 08/25/22 23:19 08/25/22 23:20 Temperature 102.2 F H Pulse Rate 120 H 110 H 109 H Respiratory Rate 19 Blood Pressure 111/72 Pulse Oximetry 97 98 98 Oxygen Delivery Method Room Air 08/25/22 23:20 08/25/22 23:30 08/26/22 00:47 Temperature 100 F H 101.8 F H Pulse Rate 111 H Respiratory Rate 24 Blood Pressure 121/82 130/84 Pulse Oximetry 100 Oxygen Delivery Method 08/26/22 00:47 08/26/22 01:18 Temperature Pulse Rate 114 H 124 H Respiratory Rate Blood Pressure 147/93 H Pulse Oximetry 97 94 Oxygen Delivery Method Room Air [facility] Lab Data Labs: Lab Results 08/25/22 Range/Units 21:50 SARS-CoV-2 (PCR) Negative (Negative) Influenza A (RT-PCR) Flu a positive H (NEGATIVE) Influenza B (RT-PCR) Flu b negative (NEGATIVE) Point of Care Testing Test Results Negative Urine Dip Bedside Urine Glucose Negative Bedside Urine Bilirubin - Negative Bedside Urine Ketone - Negative Urine Specific [place] 1.015 Bedside Urine Occult Blood - Negative Bedside Urine pH 6.5 Bedside Urine Protein - Negative Bedside Urine Urobilinogen - Negative Bedside Urine Nitrite - Negative Bedside Urine Leukocytes - Negative Esterase ECG Data Interpretation: Normal sinus rhythm rate 103, IN interval 150 QRS [address] changes no T-wave inversions no priors MDM Narrative Medical decision making narrative: Patient is febrile mildly tachycardic found have influenza a. She is not septic.. Symptoms is likely secondary to influenza. No need for further workup at this time. Supportive care only. Discharge Plan Departure Patient Disposition: Home Clinical Impression: Influenza A Instructions: DI for Influenza -- Adult Activity Restrictions/Additional Instructions: *You have been diagnosed with influenza *What to do: At this time you have influenza. Treat fever increase fluid intake. You will continue to feel poorly for the next 5-7 days *Continue to take medications as directed Tylenol 1000 mg every 6 hours if needed for pain or fever Motrin 600 mg every 6-8 hours if needed for pain or fever *Follow up with your primary care provider in 2-3 days or call [phone] *Return to ER if you should have increasing shortness of breath not tolerating fluids or any new, worsening or concerning symptoms Prescriptions: No Action thyroid (pork) [[place] Thyroid] 15 mg tablet 15 mg PO DAILY naltrexone 50 mg tablet 50 mg PO DAILY Referrals: Yisel Perez DO [Primary Care Provider] - Visit Report Forms: Patient Portal/API
[2022-08-26] MEDS: IBUPROFEN 400 MG TABLET 800 MG PO (01:12)
[2022-08-26 01:18] VITALS: BP 147/93; PULSE 124; O2SAT 94
== END 2022-08-26 01:20 | disposition home or self-care (01) ==
PROVIDERS: Emergency Provider Emergency Medicine; PCP Family Medicine
DX: J10.1 Influenza due to other identified influenza virus with other respiratory manifestations (principal); R10.9 Unspecified abdominal pain
CPT/HCPCS: 81003; 81025; 87635; 93005; 99283; C9803

== ENCOUNTER → 2024-02-12 11:25 | Outpatient (CLI) | payer OTHER, MEDICAID, SELFPAY ==
[2024-02-12 13:35] LABS: TSH w/ Reflex to FT4 2.13 uIU/mL (0.47-4.68)
== END ==
LOC: LAB 11:26
PROVIDERS: PCP Family Medicine; Referring Provider Family Medicine; Visit Provider Family Medicine
DX: E03.9 Hypothyroidism, unspecified (principal)
CPT/HCPCS: 36415; 84443

== ENCOUNTER → 2025-01-24 11:01 | Outpatient (CLI) | payer OTHER, SELFPAY | PROVIDERS: PCP Family Medicine; Visit Provider Physician Assistant Surgical | DX: J02.9 Acute pharyngitis, unspecified (principal) | CPT/HCPCS: 87070 ==

== ENCOUNTER → 2025-04-23 13:39 | Outpatient (CLI) | payer OTHER, SELFPAY ==
[2025-04-23 13:55] LABS: Hematocrit 36.3 % (36-46); Hemoglobin 12.4 g/dL (12.0-16.0); Mean Corpuscular HGB Conc 34.1 % (30-36); Mean Corpuscular Hemoglobin 31.1 PG (26-34); Mean Corpuscular Volume 91.2 fL (80-100); Platelet Count 313 X10^3/uL (150-400)
[2025-04-23 14:25] LABS: Alanine Aminotransferase 21 IU/L (<35); Albumin 4.7 g/dL (3.5-5.0); Albumin Globulin Ratio 1.6 (1.0-2.8); Alkaline Phosphatase 55 U/L (38-126); Blood Urea Nitrogen 11 mg/dL (7-17); Calcium 9.0 mg/dL (8.4-10.2); Carbon Dioxide 26 mmol/L (22-32); Chloride 104 mmol/L (98-107); Estimated Glomerular Filt Rate > 60 mL/min (>60); Globulin 3.0 g/dL (1.7-4.1); Glucose 78 mg/dL (70-99); HEMOLYSIS < 15 (0-50); Potassium 3.6 mmol/L (3.4-5.1); Sodium 138 mmol/L (137-145); Total Protein 7.7 g/dL (6.3-8.2)
[2025-04-23 14:56] LABS: TSH w/ Reflex to FT4 3.22 uIU/mL (0.47-4.68)
[2025-04-24 15:50] LABS: HIV 1 & 2 Ab/Ag 4th Gen Combo NEGATIVE (NEGATIVE)
== END ==
PROVIDERS: PCP Family Medicine; Referring Provider Family Medicine; Visit Provider Family Medicine
DX: Z11.3 Encounter for screening for infections with a predominantly sexual mode of transmission (principal); E03.8 Other specified hypothyroidism; N92.0 Excessive and frequent menstruation with regular cycle
CPT/HCPCS: 36415; 80053; 84443; 85027; 86592; 87389

== ENCOUNTER 2025-08-18 16:24 | Emergency (ER) | payer OTHER, SELFPAY ==
[2025-08-18 16:38] VITALS: BP 118/75; PULSE 84; RESP 17; TEMP 36.7; O2SAT 99; BMI 23.3
--- NOTE | 2025-08-18 16:45 | DI.RAD.S_ITS ---
PROCEDURE: XR CHEST 1V INDICATIONS: Chest Pain TECHNIQUE: One view of the chest was acquired. COMPARISON: None. FINDINGS: Surgical changes and devices: None. Lungs and pleura: Lungs are clear. No pleural effusions or pneumothorax. Mediastinum: Mediastinal contours appear normal. Heart size is normal. Bones and chest wall: No suspicious bony lesions. Overlying soft tissues appear unremarkable. IMPRESSION: No acute pulmonary process. Dictated by: Rachele Leonard M.D. on 08/18/2025 at 17:22 Approved by: Rachele Leonard M.D. on 08/18/2025 at 17:23
--- NOTE | 2025-08-18 16:54 | EKG_ITS ---
[facility] [address] [place] [id number] Test Date: 2025-08-18 Pat Name: Mandy Schneider Department: [facility] Room: Gender: Female Disability Program Navigator: KING : 1990 Requested By: Order Number: [id number] Reading MD: Calvin Vega MD Measurements Intervals [place] Rate: 85 P: 67 TX: 130 QRS: 83 QRSD: 88 T: 60 QT: 390 QTc: 464 Interpretive Statements Normal sinus rhythm Electronically Signed On 08-19-2025 7:38:51 PST by Calvin Vega MD
[2025-08-18 17:04] LABS: Add Manual Diff / Slide Review NO; Hematocrit 36.1 % (36-46); Hemoglobin 12.2 g/dL (12.0-16.0); Lymphocytes Absolute Auto 2300 /uL (1100-4500); Mean Corpuscular HGB Conc 33.7 % (30-36); Mean Corpuscular Hemoglobin 30.2 PG (26-34); Mean Corpuscular Volume 89.7 fL (80-100); Platelet Count 266 X10^3/uL (150-400)
[2025-08-18 17:07] LABS: INR 1.1 (0.9-1.3); Prothrombin Time 12.4 SECONDS (9.4-12.5)
[2025-08-18 17:10] LABS: PTT Partial Thromboplastin Tim 28 SECONDS (25.1-36.5)
[2025-08-18 17:11] LABS: Alanine Aminotransferase 24 IU/L (<35); Albumin 4.5 g/dL (3.5-5.0); Albumin Globulin Ratio 1.6 (1.0-2.8); Alkaline Phosphatase 48 U/L (38-126); Blood Urea Nitrogen 19 mg/dL (7-17); Calcium 9.4 mg/dL (8.4-10.2); Carbon Dioxide 26 mmol/L (22-32); Chloride 104 mmol/L (98-107); Creatine Kinase 114 U/L (30-135); Estimated Glomerular Filt Rate > 60 mL/min (>60); Globulin 2.8 g/dL (1.7-4.1); Glucose 110 mg/dL (70-99); HEMOLYSIS < 15 (0-50); Lipase 97 U/L (23-300); Magnesium 1.8 mg/dL (1.6-2.3); Potassium 3.6 mmol/L (3.4-5.1); Sodium 138 mmol/L (137-145); Total Protein 7.3 g/dL (6.3-8.2)
[2025-08-18 17:23] LABS: NT-proBNP (BNP-Adult 18+) 43 pg/mL (<125); Troponin I < 0.012 ng/mL (0.01-0.034)
--- NOTE | 2025-08-18 17:40 | PC.NURSE ---
Provider Klever instructed to hold Aspirin administration.
--- NOTE | 2025-08-18 18:56 | ED.CHESTPAIN ---
HPI - Chest Pain General Chief Complaint: Chest Pain Stated Complaint: pc ref Chest pain/nausea x2 days Time Seen by Provider: 08/18/25 18:50 Source: patient Mode of arrival: Ambulatory Limitations: no limitations History of Present Illness HPI narrative: 35-year-old female history of hypothyrodism with no significant past medical presents with left-sided chest pain feels like squeezing pain worse at night when she lies down for which she has not taken anything for this. Pt denies any long-distance travel, driving, trauma, nausea, vomiting, diaphoresis, or any history of DVT or PE or leg pain, leg swelling. Other than what is stated 14 point review system is negative. Related Data Previous Rx's ?Medication ?Instructions ?Recorded thyroid (pork) 30 mg tablet ([employer] 30 mg PO DAILY #90 tabs 04/23/25 Thyroid) Allergies Allergy/AdvReac Type Severity Reaction Status Date / Time No Known Drug Allergies Allergy Verified 08/18/25 16:38 Review of Systems Review of Systems ROS Unobtainable: All systems reviewed & are unremarkable except as noted in HPI and below Patient History Medical History Anemia (~2016) Anemia affecting Chicken pox (~1992) Dyspepsia Headache (~2018) Hypothyroid Iron deficiency Myalgia Painful menstrual periods (~2017) Spontaneous vaginal delivery Surgical History Anesthesia [place] teeth removed (~2007) Family History Grandmother Breast cancer Social History second hand exposure: No alcohol intake: current substance use type: does not use alcohol intake frequency: 0-2 drinks per day Exam Narrative Exam Narrative: GENERAL: [35] year old patient appears stated age. Well-developed patient, in mild distress. HEAD: Atraumatic. Normocephalic. EYES: Pupils equal round and reactive. Extraocular motions intact. No scleral icterus. No injection or drainage. ENT: Nose without bleeding, purulent drainage. Throat without erythema, tonsillar hypertrophy or exudate. Airway patent. NECK: Trachea midline. Non tender CARDIOVASCULAR: Regular rate and rhythm without murmurs, gallops, or rubs. RESPIRATORY: Clear to auscultation. Breath sounds equal bilaterally. No wheezes, rales, or rhonchi. GASTROINTESTINAL: Abdomen soft, non-tender, nondistended. EXTREMITIES: No edema or joint tenderness. BACK: Nontender without deformity or crepitance. No flank tenderness. NEURO: AOx3. SKIN: No rash or erythema of visible areas Initial Vital Signs Initial Vital Signs: Vital Signs Temperature 98.0 F 08/18/25 16:38 Pulse Rate 84 08/18/25 16:38 Respiratory Rate 17 08/18/25 16:38 Blood Pressure 118/75 08/18/25 16:38 Pulse Oximetry 99 08/18/25 16:38 Oxygen Delivery Method Room Air 08/18/25 16:38 Scores HEART Score Heart Score history: Slightly Suspicious Heart Score EKG: Normal Heart Score Age: < 45 years old Heart Score risk factors: No known risk factors Heart Score troponin: < or = to normal limit Heart Score Total: 0 Course Orders Ordered: ED Orders 08/18/25 16:35 Complete Blood Count AUTO DIFF Stat Comprehensive Metabolic Panel Stat D Dimer Stat Lipase Stat Magnesium Stat NT-proBNP (BNP-Adult 18+) Stat PTT Partial Thromboplastin Morteza Stat Prothrombin Time INR Stat Troponin & CK Cardiac Panel Stat 08/18/25 16:45 XR chest 1V Stat EKG-12 Lead Stat 08/18/25 19:12 Trop I [Troponin I] Stat Discontinued Medications Aspirin (Aspirin 81 Mg Chew Tab) 324 mg PO NOW ONE Stop: 08/18/25 16:46 Last Admin: 08/18/25 18:52 Dose: Not Given Documented By: RLS Vital Signs Vital signs: Vital Signs - 8 hr 08/18/25 16:38 08/18/25 19:34 Temperature 98.0 F Pulse Rate 84 63 Respiratory Rate 17 16 Blood Pressure 118/75 123/86 Pulse Oximetry 99 98 Oxygen Delivery Method Room Air Room Air MDM - Chest Pain Lab Data 08/18/25 16:35 08/18/25 16:35 Labs: Lab Results 08/18/25 08/18/25 Range/Units 16:35 19:12 WBC 8.2 (4.5-11.0) X10^3/uL RBC 4.02 (4.0-5.2) X10^6/uL Hgb 12.2 (12.0-16.0) g/dL Hct 36.1 (36-46) % MCV 89.7 (80-100) fL MCH 30.2 (26-34) PG MCHC 33.7 (30-36) % RDW 14.4 (11.6-14.8) % Plt Count 266 (150-400) X10^3/uL Neut % (Auto) 61.0 (50-75) % Lymph % (Auto) 27.6 (25-40) % [place] % (Auto) 10.3 (3-14) % Eos % (Auto) 0.2 L (2-4) % Baso % (Auto) 0.9 (0-2) % Neut # (Auto) 5000 (7866-3576) /uL Lymph # (Auto) 2300 (1796-8000) /uL [place] # (Auto) 800 (0-900) /uL Eos # (Auto) 0 (0-450) /uL Baso # (Auto) 100 (0-100) /uL PT 12.4 (9.4-12.5) SECONDS INR 1.1 (0.9-1.3) APTT 28 (25.1-36.5) SECONDS D-Dimer 334 (<500) ng/ml Sodium 138 (137-145) mmol/L Potassium 3.6 (3.4-5.1) mmol/L Chloride 104 (98-107) mmol/L Carbon Dioxide 26 (22-32) mmol/L BUN 19 H (7-17) mg/dL Creatinine 0.82 (0.52-1.04) mg/dL Estimated GFR > 60 (>60) mL/min BUN/Creatinine Ratio 23.2 H (6-22) Glucose 110 H (70-99) mg/dL Calcium 9.4 (8.4-10.2) mg/dL Magnesium 1.8 (1.6-2.3) mg/dL Total Bilirubin 0.3 (0.2-1.3) mg/dL AST 26 (14-36) IU/L ALT 24 (<35) IU/L Alkaline Phosphatase 48 (38-126) U/L Total Creatine Kinase 114 (30-135) U/L Troponin I < 0.012 < 0.012 (0.01-0.034) ng/mL NT-Pro-B Natriuret Pep 43 (<125) pg/mL Total Protein 7.3 (6.3-8.2) g/dL Albumin 4.5 (3.5-5.0) g/dL Globulin 2.8 (1.7-4.1) g/dL Albumin/Globulin Ratio 1.6 (1.0-2.8) Lipase 97 (23-300) U/L Imaging Data Chest x-ray: Radiologist's Impression: [address] [address] XRay Report Signed Patient: Mandy Schneider MR#: [id number] : 1990 Acct:[id number] Age/Sex: 35 / F Date of Service: 08/18/25 Loc: ED Accession Number: [id number] Procedure: XR chest 1V Ordering Provider: Rajan Ernst MD PROCEDURE: XR CHEST 1V INDICATIONS: Chest Pain TECHNIQUE: One view of the chest was acquired. COMPARISON: None. FINDINGS: Surgical changes and devices: None. Lungs and pleura: Lungs are clear. No pleural effusions or pneumothorax. Mediastinum: Mediastinal contours appear normal. Heart size is normal. Bones and chest wall: No suspicious bony lesions. Overlying soft tissues appear unremarkable. IMPRESSION: No acute pulmonary process. Dictated by: Rachele Leonard M.D. on 08/18/2025 at 17:22 Approved by: Rachele Leonard M.D. on 08/18/2025 at 17:23 ECG Data Interpretation: NSR HR 85 CT 130 QRS [address]-t wave change MDM Narrative Medical decision making narrative: All lab work, vital signs, nurse triage note, medication list, previous ER visits, and all imaging studies reviewed. Two sets troponin normal D-dimer normal. Chest x-ray shows no acute process. Heart score 0. Differential diagnosis GERD anxiety PE pleurisy. Will have patient follow up PCP for follow up. Discharge Plan Departure Patient Disposition: Home Clinical Impression: Chest pain Instructions: DI for Chest Pain Activity Restrictions/Additional Instructions: Return with new or worsening symptoms. Please follow up with PCP call office for appointment this week. Prescriptions: No Action thyroid (pork) [[employer] Thyroid] 30 mg tablet 30 mg PO DAILY Qty: 90 3RF Referrals: Yisel Perez DO [Primary Care Provider, Family Practice] Stand Alone Forms: Patient Portal/API, Work Release Note
--- NOTE | 2025-08-18 19:18 | PC.NURSE ---
Patient is in RP2 waiting area without capabilities for cardiac monitoring. Patient will be placed on cardiac monitoring once back to a room.
[2025-08-18 19:34] VITALS: BP 123/86; PULSE 63; RESP 16; O2SAT 98
[2025-08-18 19:43] LABS: Troponin I < 0.012 ng/mL (0.01-0.034)
[2025-08-18 20:50] VITALS: BP 130/87; PULSE 75; RESP 18; O2SAT 98
== END 2025-08-18 20:45 | disposition home or self-care (01) ==
PROVIDERS: Emergency Medicine; Emergency Provider Family Medicine; PCP Family Medicine
DX: R07.9 Chest pain, unspecified (principal)
CPT/HCPCS: 36415; 71045; 80053; 82550; 83690; 83735; 83880; 84484; 85025; 85379; 85610; 85730; 93005; 93010; 99283; 99284

== ENCOUNTER → 2025-09-08 10:47 | Outpatient (CLI) | payer OTHER, SELFPAY ==
[2025-09-08 15:49] LABS: Urine Chlamydia NOT DETECTED; Urine N gonorrhoeae NOT DETECTED
== END ==
PROVIDERS: PCP Family Medicine; Referring Provider Family Medicine; Visit Provider Family Medicine
DX: Z11.3 Encounter for screening for infections with a predominantly sexual mode of transmission (principal); R05.9 Cough, unspecified; J02.9 Acute pharyngitis, unspecified; R21 Rash and other nonspecific skin eruption
CPT/HCPCS: 36415; 85651; 86060; 86140; 86318; 87491; 87591; 87798